=== PATIENT | female | born 1985 | race Caucasian/White ===

== ENCOUNTER 2017-04-05 16:47 | Inpatient (IN) | payer OTHER ==
--- NOTE | 2017-04-05 17:51 | CT ---
CT OF THE ORBITS 04/05/17 COMPARISON: None. HISTORY: Orbital trauma on the left. TECHNIQUE: Serial axial CT imaging obtained at 2.5 mm intervals through the orbits without contrast. Coronal and sagittal reformatted imaging obtained. FINDINGS: The frontal sinuses, maxillary sinuses, sphenoid sinuses, and ethmoid air cells appear within normal limits. There is exophthalmos on the left. There is subcutaneous gas on the left anterior to the maxillary si nus and just inferior to the left orbit. There are foci of subcutaneous gas within the soft tissues j ust lateral to the left nasal bone and there is subcutaneous gas in the region of the left upper eyel id. In addition, there are foci of gas within the left orbit in the intraconal region superior to the left superior rectus muscle. the nasal bones, zygomatic arches, and pterygoid plates appear intact. No radiopaque foreign body. The orbital floor and medial orbital wall appears intact bilaterally. The ocular lens appears to be in an appropriate position bilaterally and the globes demonstrate symme tric size and shape with no evidence for a ocular rupture. There is diffuse scleral thickening on the left with stranding of the soft tissues immediately adjacent to the left globe. No measurable retrobulbar hematoma. The visualized intracranial contents are grossly unremarkable. IMPRESSION: Evidence of penetrating trauma involving the left orbit and adjacent soft tissues with mild stranding of the soft tissues just posterior to the left globe including the intraconal fat. There is no focal retrobulbar hematoma appreciated and no evidence for fracture. Significant exophthalmos noted with n o evidence for foreign body or ruptured globe. Results discussed with Dr. Carrillo at 5:30 p.m., 04/05/17. Code CR POS: LIEN
[2017-04-05] MEDS ORDERED: Erythromycin Base 0.5% Ophth Oint 3.5 gm Tube ONE (19:40)
[2017-04-05] MEDS ORDERED: Ziprasidone 20 MG VIAL ONE (19:59)
[2017-04-05] MEDS ORDERED: Haloperidol Lactate 5 MG/ML VIAL ONE (20:05)
[2017-04-05] MEDS ORDERED: Lorazepam 2 MG/ML VIAL ONE (20:05)
[2017-04-05 21:09] LABS: #Lymphocytes 2.4 thou/uL (1.20-3.40); #Monocytes 1.3 thou/uL (0.11-0.59); #Neutrophils 14.6 thou/uL (1.40-6.50); %Basophils 0.2 % (0.0-1.0); %Eosinophils 0.1 % (0.0-10.0); %Lymphocytes 13.1 % (21.0-51.0); %Monocytes 7.1 % (0.0-10.0); %Neutrophils 79.5 % (42.0-75.0); Hemoglobin 13.7 g/dL (12.0-16.0); Mean Corpuscular HGB CONC 33.3 g/dL (32.0-36.0); Mean Corpuscular Hemoglobin 31.3 pg (27.0-31.0); Mean Platelet Volume 6.6 fL (7.4-10.4); Platelet Count 327 thou/uL (130-400); RBC Distribution Width 12.4 % (11.5-14.5); Red Blood Cell (RBC) Count 4.37 mill/uL (4.20-5.40); White Blood Cell (WBC) Count 18.3 thou/uL (4.8-10.8)
[2017-04-05 21:29] LABS: Bilirubin Negative (Negative); Blood, Urine Trace (Negative); Clarity CLOUDY (Clear); Glucose, Urine (Dipstick) Negative (Negative); Leukocyte Large (Negative); Nitrite Positive (Negative); Protein, Urine (Dipstick) 30 mg/dL (Neg-Trace); Specific Gravity, Urine 1.022 (1.002-1.036); pH, Urine 6.5 (5.0-9.0)
[2017-04-05 21:32] LABS: ALT (SGPT) 13 U/L (8-55); AST (SGOT) 30 U/L (5-34); Albumin 4.3 g/dL (3.5-5.0); Alkaline Phosphatase 83 U/L (40-150); Anion Gap 15 mmol/L (10-20); BUN (Urea Nitrogen) 6 mg/dL (7.0-18.7); Bilirubin, Total 0.5 mg/dL (0.2-1.2); Calc. Creatinine Clearance 0 mL/min (70-130); Calcium 9.5 mg/dL (7.8-10.44); Carbon Dioxide 25 mmol/L (22-29); Chloride 102 mmol/L (98-107); Estimated GFR-MDRD 90; Globulin 3.1 g/dL (2.4-3.5); Glucose 107 mg/dL (70-105); Protein, Total 7.4 g/dL (6.0-8.3); Sodium 139 mmol/L (136-145)
[2017-04-05 21:32] LABS: Bacteria/HPF 4+ HPF (None Seen); Pathc Cast-AUWi Flag 1.08 (0-2.49); RBC/HPF 0-3 HPF (0-3); Squamous Epithelial 0-3 HPF (0-3)
[2017-04-05 21:33] LABS: Hyaline Casts/LPF 0-3 HYALINE CAST LPF (0-3 Hyaline)
[2017-04-05 21:34] LABS: Acetaminophen Less than 6.0 mcg/mL (10.0-30.0); Alcohol Less than 10 mg/dL (Less than 10); Salicylate Less than 8.0 mg/dL (15.0-30.0)
[2017-04-05 21:38] LABS: Medtox Reader # READER 1
[2017-04-05 21:39] LABS: Amphetamine Not Detected (NotDetected); Barbiturates Screen Not Detected (NotDetected); Benzodiazepine Screen Detected (NotDetected); Cocaine Metabolite Screen Not Detected (NotDetected); Medtox Control Line Valid? VALID (VALID); Methadone Not Detected (NotDetected); Methamphetamine Not Detected (NotDetected); Opiate Screen Not Detected (NotDetected); Oxycodone Screen Not Detected (NotDetected); Phencyclidine (PCP) Not Detected (NotDetected); THC/Cannabinoid Screen Not Detected (NotDetected); Tricyclic Screen Not Detected (NotDetected)
[2017-04-05 21:40] LABS: Potassium 2.9 mmol/L (3.5-5.1)
[2017-04-05] MEDS ORDERED: Potassium Chloride 40 MEQ in Sodium Chloride 0.9% 500 ML IVPB SCH (22:15)
--- NOTE | 2017-04-05 22:21 | PDOC.FPRHP ---
- History of Present Illness Chief Complaint: Self harm with spoon to eye History of Present Illness: 31 year old female [facility] to self harm. She attempted to put a wooden spoon through her left eye whereby she sustained a penetrating injury. Dr. Coker, [employer], has seen patient in ED and repaired the injury. She now has a patch over her left eye. Patient has extensive psychiatric history. She has attempted self harm in the past. Much of the details of her PMH are unknown at this time as patient is lightly sedated on medications and unwilling to answer questions. She is currently in penitentiary and is known to be violent. [facility] was consulted and asked that labs be performed prior to accepting patient. Labs revealed a urinary tract infection, elevated WBC, and hypokalemia. Thus, [facility] would not accept the patient until medically cleared. Patient being admitted for medical management of hypokalemia and UTI. ED Course: Patient given ketamine 100 mg IVP, Tylenol 650 mg, Geodon 40 mg, Haldol 5 mg IM , Ativan 2 mg IM, NS 1L, Ceftriaxone 1 g IVPB, 40 meq of K over 40 hours IVPB, and erythromcyin opthalmic solution to left eye. - Allergies/Adverse Reactions Allergies Allergy/AdvReac Type Severity Reaction Status Date / Time Iodine and Iodide Containing Allergy Severe Short of Verified 09/15/16 22:24 Produc Breath - Home Medications Medication Instructions Recorded Confirmed Type OXcarbazepine [Trileptal] 600 mg PO HS 09/15/16 09/15/16 History Ziprasidone [Geodon] 40 mg PO HS 09/15/16 09/15/16 History Haloperidol [Haldol] 1 mg PO BID tab 09/16/16 Rx Nicotine [Nicoderm CQ] 21 mg TD Q24HR patch 09/16/16 Rx Nitrofurantoin Macrocrystal 100 mg PO BID #6 capsule 09/16/16 Rx [Nitrofurantoin] OXcarbazepine [Trileptal] 300 mg PO BID tab 09/16/16 Rx Vitamin 1 tab PO DAILY tab 09/16/16 Rx Comments: Unable to confirm medications at this time. - History PMHx: Known psychiatric history, unable to obtain details at this time PSHx: Unknown FHx: Unknown Social: Known methamphetamine abuse history - Review of Systems ROS unobtainable: due to mental status - Vital signs BP: [122/81] HR: [78] RR: [14] Tmax: [98.7] Pox: [98]% on [RA] Wt: [74.4 kg] - Physical Exam Additional comment: Unable to perform PE due to violent nature of patient and concerns for personal safety. FMR H&P: Results - Labs Result Diagrams: 04/05/17 20:44 04/05/17 20:44 Lab results: WBC 18.3 thou/uL (4.8-10.8) H 04/05/17 20:44 Hgb 13.7 g/dL (12.0-16.0) 04/05/17 20:44 Hct 41.1 % (36.0-47.0) 04/05/17 20:44 MCV 94.0 fl (81.0-99.0) 04/05/17 20:44 Plt Count 327 thou/uL (130-400) 04/05/17 20:44 Neutrophils % 79.5 % (42.0-75.0) H 04/05/17 20:44 Sodium 139 mmol/L (136-145) 04/05/17 20:44 Potassium 2.9 mmol/L (3.5-5.1) L* 04/05/17 20:44 Chloride 102 mmol/L (98-107) 04/05/17 20:44 Carbon Dioxide 25 mmol/L (22-29) 04/05/17 20:44 BUN 6 mg/dL (7.0-18.7) L 04/05/17 20:44 Creatinine 0.75 mg/dL (0.6-1.1) 04/05/17 20:44 Glucose 107 mg/dL (70-105) H 04/05/17 20:44 Calcium 9.5 mg/dL (7.8-10.44) 04/05/17 20:44 Total Bilirubin 0.5 mg/dL (0.2-1.2) 04/05/17 20:44 AST 30 U/L (5-34) 04/05/17 20:44 ALT 13 U/L (8-55) 04/05/17 20:44 Alkaline Phosphatase 83 U/L (40-150) 04/05/17 20:44 Serum Total Protein 7.4 g/dL (6.0-8.3) 04/05/17 20:44 Albumin 4.3 g/dL (3.5-5.0) 04/05/17 20:44 Urine Ketones 40 mg/dL (Negative) H 04/05/17 21:10 Urine Blood Trace (Negative) H 04/05/17 21:10 Urine Nitrite Positive (Negative) H 04/05/17 21:10 Ur Leukocyte Esterase Large (Negative) H 04/05/17 21:10 Urine RBC 0-3 HPF (0-3) 04/05/17 21:10 Urine WBC Greater Than 50-TNTC HPF (0-3) H 04/05/17 21:10 Ur Squamous Epith Cells 0-3 HPF (0-3) 04/05/17 21:10 Urine Bacteria 4+ HPF (None Seen) H 04/05/17 21:10 Additional comment: UDS: positive for benzo's Acetaminophen < 6.0 Salicylates < 6.0 FMR H&P: A/P - Problem List (1) Intentional self-harm by blunt object Current Visit: Yes Status: Acute Code(s): X79.XXXA - INTENTIONAL SELF-HARM BY BLUNT OBJECT, INITIAL ENCOUNTER Qualifiers: Encounter type: initial encounter Qualified Code(s): X79.XXXA - Intentional self-harm by blunt object, initial encounter Assessment and Plan: 1. Sustained left eye injury 2/2 penetration by wooden spoon 2. s/p repair by Dr. Coker, [employer] 3. Erythromycin ointment to left eye TID 4. Consult [facility] once medically stable (2) Hypokalemia Current Visit: Yes Status: Acute Code(s): E87.6 - HYPOKALEMIA Assessment and Plan: 1. Potassium 2.9 2. Given 40 meq IV in ED 3. Repeat BMP in AM 4. Replace as appropriate 5. Pending EKG (3) UTI (urinary tract infection) Current Visit: Yes Status: Acute Qualifiers: Urinary tract infection type: acute cystitis Assessment and Plan: 1. UA showed positive nitrates, large LE's, 4+ bacteria, WBC >50 2. Given 1 g rocephin in ED 3. Continue IV rocephin for treatment of UTI until mental status improved 4. Afebrile (4) Mental and behavioral problem Current Visit: Yes Status: Acute Code(s): F48.9 - NONPSYCHOTIC MENTAL DISORDER, UNSPECIFIED; F69 - UNSPECIFIED DISORDER OF ADULT PERSONALITY AND BEHAVIOR Assessment and Plan: 1. Known psych history; not cooperative with answering questions and lightly sedated on medications 2. When ED physician attempted to ask questions, patient screamed profanity rather than answering the questions 3. Will continue ativan and haldol for agitation 4. Four point, hard restraints at all times - Plan Disposition/LOS: Admit to telemetry with expected LOS 2 days. Pending MHMR consult once medically cleared. Expected D/C to inpatient psych. Daija Quinn, DO FMR H&P: Upper Level - Plan I, Delbert Zayas MD, have personally evaluated this patient and agree with findings/plan as outlined by product management internship resident. Pertinent changes/additions are listed here. 1) Intentional self-harm w/ blunt penetrating trauma to L eye: tear to the mucosal layer repaired in ER with multiple resorbable sutures by ophtho; continue with tid erythromycin ointment application; Dr. Rubio to see tomorrow AM. Pending medical clearance for MHMR re-evaluation. 2) Moderate hypokalemia: pt seems asymptomatic but unable to obtain history; EKG pending. IV piggyback running; recheck with AM labs. 3) Acute cystitis: again, unable to thoroughly evaluate for symptoms but UA consistent. Will treat with IV Rocephin for now and can transition to orals when safe to take PO. 4) Acute agitation and behavioral disturbance: underlying psych/personality d/o likely - requesting records from [facility]; prn parenteral haldol and ativan for now; restraints and safety precautions in place. Expect eventual discharge to inpatient psychiatric facility. Attending Addendum - Attending Addendum I personally evaluated the patient and discussed the management with Dr. Robert and Dr. Zayas I agree with the History, Examination, Assessment and Plan documented above with any addition or exceptions noted below. 31 yo female s/p recent RLTCSx4 with BTL presents to ER for acute psychosis with self-harm. Patient sedated in ER. Very combative upon arrive after attempting to remove her eye with a spoon. Patient currently an inmate in [facility]. History of multiple psychotic episodes. Last admission 09/2016. Patient with history of bipolar I disorder and polysubstance abuse. Appears to have UTI and electrolyte abnormalities. Will treat with IV antibx as above as well as correct and monitor lab abnormalities. Awaiting medical stabilization in order to transfer to [facility]/inpatient psych. Oj
[2017-04-06] MEDS ORDERED: Ondansetron HCl/PF 4 MG/2 ML Vial IVP PRN ×2 (01:23→01:28)
[2017-04-06] MEDS ORDERED: Ondansetron ODT 4 MG TAB SL PRN (01:23)
[2017-04-06] MEDS ORDERED: Acetaminophen 325 MG TAB PO PRN (01:23)
[2017-04-06] MEDS ORDERED: Lorazepam 2 MG/ML VIAL SLOW IVP PRN (01:28)
[2017-04-06] MEDS ORDERED: Ondansetron ODT 4 MG TAB PO PRN (01:28)
[2017-04-06] MEDS ORDERED: Acetaminophen 650 MG Suppository PR PRN (01:28)
[2017-04-06] MEDS ORDERED: Haloperidol Lactate 5 MG/ML VIAL IM PRN (01:28)
[2017-04-06] MEDS ORDERED: Sodium Chloride 0.9% 1,000 ML IV SCH (01:30)
[2017-04-06 02:01] VITALS: BMI 27.1
[2017-04-06] MEDS: Dextrose 5 %-0.45 % NaCl 1,000 ML IV SCH ×3 (03:07→16:21)
[2017-04-06] MEDS: Nicotine 14 MG PATCH TD SCH (03:18)
[2017-04-06 05:31] LABS: #Basophils 0.1 thou/uL (0.0-0.2); #Lymphocytes 2.1 thou/uL (1.20-3.40); #Monocytes 1.2 thou/uL (0.11-0.59); #Neutrophils 8.4 thou/uL (1.40-6.50); %Basophils 0.4 % (0.0-1.0); %Eosinophils 0.3 % (0.0-10.0); %Lymphocytes 17.6 % (21.0-51.0); %Monocytes 10.2 % (0.0-10.0); %Neutrophils 71.4 % (42.0-75.0); Hemoglobin 12.6 g/dL (12.0-16.0); Mean Corpuscular HGB CONC 32.6 g/dL (32.0-36.0); Mean Corpuscular Hemoglobin 30.8 pg (27.0-31.0); Mean Corpuscular Volume 94.5 fl (81.0-99.0); Mean Platelet Volume 6.9 fL (7.4-10.4); Platelet Count 301 thou/uL (130-400); RBC Distribution Width 12.4 % (11.5-14.5); Red Blood Cell (RBC) Count 4.09 mill/uL (4.20-5.40); White Blood Cell (WBC) Count 11.7 thou/uL (4.8-10.8)
[2017-04-06 05:39] LABS: Anion Gap 8 mmol/L (10-20); BUN (Urea Nitrogen) 5 mg/dL (7.0-18.7); Calc. Creatinine Clearance 142 mL/min (70-130); Calcium 8.5 mg/dL (7.8-10.44); Carbon Dioxide 25 mmol/L (22-29); Chloride 109 mmol/L (98-107); Estimated GFR-MDRD Greater than 90; Glucose 111 mg/dL (70-105); Potassium 3.3 mmol/L (3.5-5.1); Sodium 139 mmol/L (136-145)
[2017-04-06] MEDS ORDERED: Potassium Chloride 40 MEQ in Premix Bag 1 BAG IVPB SCH (07:30)
[2017-04-06] MEDS ORDERED: Potassium Chloride 40 MEQ, Admixture Fee 1 EACH in Sodium Chloride 0.9% 250 ML 250 ML IVPB SCH (07:45)
[2017-04-06] MEDS ORDERED: FLU VACC QS2017-18 36 mo. & older 0.5 ML SYRINGE IM ONE (09:00)
--- NOTE | 2017-04-06 09:24 | PDOC.FM ---
- Subjective Subjective: Pt sedated this am. No acute events overnight. - Objective MAR Reviewed: Yes Vital Signs & Weight: Vital Signs (12 hours) Temp Pulse Resp BP Pulse Ox 04/06/17 03:42 99.0 F 70 17 124/88 96 04/06/17 01:10 98.5 F 72 16 138/78 98 Weight Weight 76.204 kg I&O: 04/05/17 04/06/17 04/07/17 06:59 06:59 06:59 Intake Total 336 Balance 336 Result Diagrams: 04/06/17 04:47 04/06/17 04:47 <Mita Noe - Last Filed: 04/06/17 09:21> - Objective Vital Signs & Weight: Vital Signs (12 hours) Temp Pulse Resp BP Pulse Ox 04/06/17 12:19 102 H 20 116/86 99 04/06/17 07:00 98.6 F 82 22 H 121/91 H 98 Weight Weight 76.204 kg I&O: 04/05/17 04/06/17 04/07/17 06:59 06:59 06:59 Intake Total 336 Balance 336 Result Diagrams: 04/06/17 04:47 04/06/17 11:22 <Macey Rodriguez - Last Filed: 04/06/17 15:49> Phys Exam - Physical Examination Constitutional: NAD sedated nonlabored breathing Cardiovascular: RRR normal sinus rhythm Neurological: non-focal sedated <Mita Noe - Last Filed: 04/06/17 09:21> Dx/Plan (1) Hypokalemia Code(s): E87.6 - HYPOKALEMIA Status: Acute (2) Intentional self-harm by blunt object Code(s): X79.XXXA - INTENTIONAL SELF-HARM BY BLUNT OBJECT, INITIAL ENCOUNTER Status: Acute QualifierTitle: Encounter type: initial encounter Qualified Code(s): X79.XXXA - Intentional self-harm by blunt object, initial encounter (3) Mental and behavioral problem Code(s): F48.9 - NONPSYCHOTIC MENTAL DISORDER, UNSPECIFIED; F69 - UNSPECIFIED DISORDER OF ADULT PERSONALITY AND BEHAVIOR Status: Acute (4) UTI (urinary tract infection) Status: Acute QualifierTitle: Urinary tract infection type: acute cystitis - Plan Plan: 31 yo f with intentional harm of injury to eye admitted for intentional harm. 1) Intentional self-harm w/ blunt penetrating trauma to L eye; seen by Dr. Coker in the ER. Continue with tid erythromycin ointment application and Dr. Coker's recs; Pending medical clearance for [facility] re-evaluation. 2) Moderate hypokalemia: Resolved with NS + KCl. 3) Acute cystitis: will transition to PO antibiotics once patient is able to tolerate PO. She is currently sedated. Continue Rocephin at this time. 4) Acute agitation and behavioral disturbance: underlying psych/personality d/o likely - requesting records from [facility]; prn parenteral haldol and ativan for now; restraints and safety precautions in place. Expect eventual discharge to inpatient psychiatric facility. <Mita Noe - Last Filed: 04/06/17 09:21> Attending Addendum - Attending Addendum Date/Time: 04/06/17 4460 I personally evaluated the patient and discussed the management with Dr. Noe. I agree with the History, Examination, Assessment and Plan documented above with any addition or exceptions noted below. The patient is sleepy but arouses to answer questions. Complains of eye pain. Replacing potassium and will recheck potassium. Continue antibiotics for UTI. Try to obtain patient's psych history. Will coordinate with retirement once stable to get pt psychiatric care. <Macey Rodriguez - Last Filed: 04/06/17 15:49>
[2017-04-06] MEDS: Erythromycin Base 0.5% Oint 1 GM TUBE L EYE SCH ×3 (11:48→21:07)
[2017-04-06 12:05] LABS: Potassium 3.7 mmol/L (3.5-5.1)
[2017-04-06] MEDS: Acetaminophen 325 MG TAB PO PRN ×2 (17:13→21:06)
[2017-04-06] MEDS ORDERED: cefTRIAXone\\ROCEPHIN 1 GM, Syringe 0.4 ML in Sterile Water 9.6 ML SLOW IVP SCH (21:30)
[2017-04-06] MEDS ORDERED: cefTRIAXone\\ROCEPHIN 1 GM in Sodium Chloride 0.9% 100 ML IVPB SCH (21:30)
[2017-04-07] MEDS: Dextrose 5 %-0.45 % NaCl 1,000 ML IV SCH ×2 (02:02→09:51)
[2017-04-07] MEDS: Nicotine 14 MG PATCH TD SCH (02:06)
[2017-04-07] MEDS: Acetaminophen 325 MG TAB PO PRN ×2 (04:55→11:00)
--- NOTE | 2017-04-07 06:58 | PDOC.FM ---
- Subjective Subjective: No acute events overnight. No complaints this am. - Objective MAR Reviewed: Yes Vital Signs & Weight: Vital Signs (12 hours) Temp Pulse Resp BP Pulse Ox 04/07/17 04:00 98.6 F 59 L 16 144/105 H 97 04/07/17 00:00 98.5 F 61 16 150/102 H 96 04/06/17 20:35 98.7 F 78 16 100 04/06/17 20:00 98.7 F 78 16 140/88 100 Weight Weight 76.204 kg I&O: 04/05/17 04/06/17 04/07/17 06:59 06:59 06:59 Intake Total 336 Output Total 2700 Balance 336 -2700 Result Diagrams: 04/06/17 04:47 04/06/17 11:22 <Mita Noe - Last Filed: 04/07/17 11:39> - Objective Vital Signs & Weight: Vital Signs (12 hours) Temp Pulse Resp BP BP Pulse Ox 04/07/17 15:29 192/119 H 04/07/17 12:38 168/115 H 04/07/17 10:44 99.3 F 72 16 168/115 H 98 04/07/17 08:00 98.6 F 63 16 100 04/07/17 07:50 98.6 F 63 16 171/101 H 100 Weight Weight 76.204 kg I&O: 04/06/17 04/07/17 04/08/17 06:59 06:59 06:59 Intake Total 336 960 Output Total 2700 Balance 336 -2700 960 Result Diagrams: 04/06/17 04:47 04/06/17 11:22 <Macey Rodriguez - Last Filed: 04/07/17 18:35> Phys Exam - Physical Examination Constitutional: NAD left eye swollen shut; ecchymosis present Respiratory: no wheezing no increased work of breathing Cardiovascular: RRR Neurological: non-focal Psychiatric: A&O x 3 Deviation from normal: abnormal affect <Mita Noe - Last Filed: 04/07/17 11:39> Dx/Plan (1) Hypokalemia Code(s): E87.6 - HYPOKALEMIA Status: Acute (2) Intentional self-harm by blunt object Code(s): X79.XXXA - INTENTIONAL SELF-HARM BY BLUNT OBJECT, INITIAL ENCOUNTER Status: Acute QualifierTitle: Encounter type: initial encounter Qualified Code(s): X79.XXXA - Intentional self-harm by blunt object, initial encounter (3) Mental and behavioral problem Code(s): F48.9 - NONPSYCHOTIC MENTAL DISORDER, UNSPECIFIED; F69 - UNSPECIFIED DISORDER OF ADULT PERSONALITY AND BEHAVIOR Status: Acute (4) UTI (urinary tract infection) Status: Acute QualifierTitle: Urinary tract infection type: acute cystitis - Plan Plan: 31 yo f with intentional harm of injury to eye admitted for intentional harm. 1) Intentional self-harm w/ blunt penetrating trauma to L eye; seen by Dr. Coker in the ER. Continue with qid erythromycin ointment application and Dr. Coker's recs; Cm called Sgt. Garrison at the shelter to ask if they feel that she can be taken care of there safely. If she cannot be safely taken care of, then she will have to wait for a bed at [facility] here in the hospital. 2.) Acute cystitis: will transition to PO macrobi today. 3) Acute agitation and behavioral disturbance: underlying psych/personality d/o likely - requesting records [facility]; prn parenteral haldol and ativan for now; restraints and safety precautions in place. Expect eventual discharge to [facility]. dispo: medically cleared, pending bed at [facility], and pending call from Sgt Garrison regarding safety/care at the shelter for this patient. <Mita Noe - Last Filed: 04/07/17 11:39> Attending Addendum - Attending Addendum Date/Time: 04/07/17 [id number] I personally evaluated the patient and discussed the management with Dr. Noe. I agree with the History, Examination, Assessment and Plan documented above with any addition or exceptions noted below. Patient is medically stable. Restarting psych meds. Patient needs an [facility] bed per [facility]. Case mgmt is helping coordinate discharge. <Macey Rodriguez - Last Filed: 04/07/17 18:35>
[2017-04-07] MEDS: Erythromycin Base 0.5% Oint 1 GM TUBE L EYE SCH (09:45)
[2017-04-07 12:29] VITALS: TEMP 99.3
[2017-04-07] MEDS ORDERED: cloNIDine 0.1 MG TAB PO SCH ×2 (12:45→15:00)
[2017-04-07 15:34] VITALS: BP 192/119
[2017-04-07] MEDS ORDERED: Erythromycin Base 0.5% Oint 1 GM TUBE L EYE SCH (17:00)
[2017-04-07] MEDS ORDERED: Benztropine 1 MG TAB PO SCH (21:00)
[2017-04-07] MEDS ORDERED: traZODone HCl 50 MG TAB PO SCH (21:00)
[2017-04-07] MEDS ORDERED: Docusate 100 MG CAP PO SCH (21:00)
[2017-04-07] MEDS ORDERED: busPIRone HCl 5 MG TAB PO SCH (21:00)
[2017-04-07] MEDS ORDERED: OXcarbazepine 600 MG TAB PO SCH (21:00)
[2017-04-07] MEDS ORDERED: levETIRAcetam 500 MG TAB PO SCH (21:00)
[2017-04-08] MEDS ORDERED: Ferrous Sulfate 325 MG TAB PO SCH (08:00)
[2017-04-08] MEDS ORDERED: Prenatal Vitamin 1 TAB PO SCH (09:00)
--- NOTE | 2017-04-08 11:53 | DIS-2 ---
DATE OF ADMISSION: 04/05/2017 DATE OF DISCHARGE: 04/07/2017 ADMITTING RESIDENT: Dr. Daija Quinn. ADMITTING ATTENDING: Dr. Saskia Parra. DISCHARGE RESIDENT: Mita Noe MD DISCHARGE ATTENDING: Macey Rodriguez M.D. CONSULTATIONS: None. PROCEDURES: CT showed evidence of penetrating trauma involving the left orbit and adjacent soft tissues with mild stranding of the soft tissues just posterior to the left globe including the intracoronal fact. There is no focal retrobulbar hematoma appreciated no evidence for fracture. Significant exophthalmus noted with no evidence for foreign body or ruptured globe. EKG showed normal sinus rhythm, nonspecific T-wave abnormality. PRIMARY DIAGNOSES: 1. Intentional self-harm by blunt object. 2. Hypokalemia. 3. Urinary tract infection. 4. Mental and behavioral disturbance. DISCHARGE MEDICATIONS: 1. Erythromycin topical q.i.d. 2. Trileptal 600 mg p.o. at bedtime. 3. vitamins 1 tab p.o. daily. 4. Benztropine 1 mg oral at bedtime. 5. Ziprasidone 18 mg oral at bedtime. 6. Trazodone 1.5 mg tablet oral at bedtime. 7. Clonidine 0.1 mg oral t.i.d. 8. Buspirone 50 mg oral twice daily. 9. Keppra 500 mg oral twice daily. 10. Docusate 100 mg oral twice daily. 11. Ferrous sulfate 325 mg oral daily. HISTORY OF PRESENT ILLNESS AND HOSPITAL COURSE: Le Lamas is a 31-year-old female, who presented from [facility] secondary to intentional self-harm with a wooden spoon that she penetrated her left eye with. She was seen in the ER by Dr. Rubio, an polish compounder, who repaired the injury. He also recommended erythromycin q.i.d. topical. She has extensive psychiatric history of attempted self-harm in the past. She was sedated in the ER. She is known in snf to be very violent. In the ER, she was given ketamine 100 mg IVP, Tylenol 650 mg, Geodon 40 mg, Haldol 5 mg IM, Ativan 2 mg IM normal saline of 1 liter, Ceftriaxone 1 gram IVP, 40 mEq potassium, and erythromycin ophthalmic solution to the left eye. Her vitals upon initial admission were within normal limits and initial exam was not performed due to viral nature of the patient and concern for personal safety. Initial labs showed a leukocytosis at 18.3 and hypokalemia of 2.9. UDS was positive for benzos. Urine showed large leukocyte esterase and 4+ bacteria. She was admitted for intentional self-harm by a blunt object, hypokalemia, UTI, and uncontrolled mental behavioral problems. 1. Intentional self-harm in a blunt object. She sustained a left eye injury due to a penetration of a wooden spoon. She was seen, as stated above, by Dr. Rubio in the ER; he saw her daily and recommended erythromycin q.i.d. 2. Hypokalemia. Her initial potassium was 2.9. She was given 40 mEq IV in the ER. Her potassium normalized. EKG was normal. 3. Urinary tract infection. UA showed positive nitrites, large leukocyte esterase, 4+ bacteria. White blood cell count over 50. She was given a gram Rocephin in the ER. IV Rocephin was continued during her hospitalization. 4. Mental behavioral problem. She has a known psychiatric history, although was initially difficult to obtain on initial H&P because of she was sedated and she was not cooperative with answering questions. Her complete medication reconciliation was done and she was restarted on her home meds. She was cleared medically by the primary team and [facility] was consulted. The inpatient medicine team spoke with Sergeant magana at the snf and the patient through the court system had her charges dropped and she was discharged from [facility] as for direct forced admission into due to the severity of her mental illness and concern for personal as well as the safety of those helping to take care of her. DISPOSITION: Unstable concern for self-harm and harm to others, mental disorder or mental illness, uncontrolled. DISCHARGE INSTRUCTIONS: 1. Location: [facility]. 2. Diet: Normal diet. 3. Activity: As tolerated. 4. Followup: Follow up with primary care within 1 week and with an polish compounder within 1 week for appropriate eye care. TRISTIAN
--- NOTE | 2017-04-09 19:35 | EKG ---
Test Reason : Blood Pressure : / mmHG Vent. Rate : 072 BPM Atrial Rate : 072 BPM P-R Int : 132 ms QRS Dur : 080 ms QT Int : 414 ms P-R-T Axes : 052 005 000 degrees QTc Int : 453 ms Normal sinus rhythm Nonspecific T wave abnormality Abnormal ECG Confirmed by ELLIE COLUNGA, LARY Ceolho ([id number]), news videotape editor CA BRICENO ([id number]) on 04/09/2017 7:35:13 PM Referred By: Confirmed By:LARY ARGUETA MD
== END 2017-04-07 15:58 | DRG 690 ==
LOC: ERS 16:47 → 2SE 22:00 → T4-A 04-07 10:34
PROVIDERS: ADMIT Student in an Organized Health Care Education/Training Program; ATTEND Student in an Organized Health Care Education/Training Program
DX: N30.00 Acute cystitis without hematuria (principal); S05.92XA Unspecified injury of left eye and orbit, initial encounter; F69 Unspecified disorder of adult personality and behavior; E87.6 Hypokalemia; X79.XXXA Intentional self-harm by blunt object, initial encounter; Y92.149 Unspecified place in prison as the place of occurrence of the external cause; Z91.5 Personal history of self-harm; F15.11 Other stimulant abuse, in remission; F31.9 Bipolar disorder, unspecified
CPT/HCPCS: 36415; 51701; 70480; 80048; 80053; 80306; 80307; 81003; 81015; 83735; 84443; 85025; 87077; 87086; 87186; 93005; 96361; 96365; 96366; 96372; 96375; A4216; A4353; J0696; J1630; J2060; J3480; J3486; J7050

== ENCOUNTER 2017-07-31 08:30 | Emergency (ER) | payer OTHER ==
[2017-07-31] MEDS ORDERED: Acetaminophen 325 MG TAB ONE (09:36)
[2017-07-31 10:12] LABS: Bilirubin Negative (Negative); Blood, Urine Small (Negative); Clarity TURBID (Clear); Glucose, Urine (Dipstick) Negative (Negative); Leukocyte Large (Negative); Nitrite Positive (Negative); Protein, Urine (Dipstick) 30 mg/dL (Neg-Trace); Specific Gravity, Urine 1.024 (1.002-1.036); pH, Urine 6.5 (5.0-9.0)
[2017-07-31 10:13] LABS: Bacteria/HPF 4+ HPF (None Seen)
[2017-07-31 10:15] LABS: Pathc Cast-AUWi Flag 2.61 (0-2.49)
[2017-07-31 10:26] LABS: Hyaline Casts/LPF 0-3 HYALINE CAST LPF (0-3 Hyaline); Other Casts/LPF None Seen LPF (0-3 Hyaline)
== END 2017-07-31 11:00 | disposition home or self-care (01) ==
LOC: ERS 08:30
DX: K02.9 Dental caries, unspecified (principal); R22.0 Localized swelling, mass and lump, head; R31.9 Hematuria, unspecified; I10 Essential (primary) hypertension; N39.0 Urinary tract infection, site not specified; Z71.6 Tobacco abuse counseling; F31.9 Bipolar disorder, unspecified; F17.210 Nicotine dependence, cigarettes, uncomplicated; Z79.899 Other long term (current) drug therapy
CPT/HCPCS: 36415; 81003; 81015; 84702; 87077; 87086; 87186; 99406

== ENCOUNTER 2017-08-01 09:30 | Emergency (ER) | payer OTHER | END 2017-08-01 10:10 | disposition home or self-care (01) | LOC: ERS 09:30 | DX: K04.7 Periapical abscess without sinus (principal); K03.81 Cracked tooth; Z71.6 Tobacco abuse counseling; I10 Essential (primary) hypertension; F31.9 Bipolar disorder, unspecified; F17.210 Nicotine dependence, cigarettes, uncomplicated; Z79.899 Other long term (current) drug therapy | CPT/HCPCS: 99406 ==

== ENCOUNTER 2017-11-02 00:13 | Emergency (ER) | payer OTHER ==
[2017-11-02 00:41] LABS: #Basophils 0.1 thou/uL (0.0-0.2); #Eosinphils 0.1 thou/uL (0.0-0.7); #Lymphocytes 2.9 thou/uL (1.20-3.40); #Neutrophils 4.8 thou/uL (1.40-6.50); %Basophils 0.6 % (0.0-1.0); %Eosinophils 0.7 % (0.0-10.0); %Lymphocytes 32.7 % (21.0-51.0); %Monocytes 11.6 % (0.0-10.0); %Neutrophils 54.4 % (42.0-75.0); Hemoglobin 13.3 g/dL (12.0-16.0); Mean Corpuscular HGB CONC 33.7 g/dL (32.0-36.0); Mean Corpuscular Hemoglobin 30.4 pg (27.0-31.0); Mean Corpuscular Volume 90.3 fL (78.0-98.0); Mean Platelet Volume 7.5 fL (7.4-10.4); Platelet Count 259 thou/uL (130-400); Red Blood Cell (RBC) Count 4.38 mill/uL (4.20-5.40); White Blood Cell (WBC) Count 8.8 thou/uL (4.8-10.8)
[2017-11-02 01:11] LABS: Acetaminophen Less than 6.0 mcg/mL (10.0-30.0); Alcohol Less than 10 mg/dL (Less than 10); Salicylate Less than 8.0 mg/dL (15.0-30.0)
[2017-11-02 01:49] LABS: Bilirubin Negative (Negative); Blood, Urine Trace (Negative); Clarity CLOUDY (Clear); Glucose, Urine (Dipstick) Negative (Negative); Leukocyte Moderate (Negative); Nitrite Negative (Negative); Protein, Urine (Dipstick) Trace mg/dL (Neg-Trace); Specific Gravity, Urine 1.025 (1.002-1.036); Urobilinogen 0.2 mg/dL (0.2-1.0)
[2017-11-02 01:52] LABS: Bacteria/HPF Rare-Few HPF (None Seen); Hyaline Casts/LPF 4-6 HYALINE CAST LPF (0-3 Hyaline); Pathc Cast-AUWi Flag 1.16 (0-2.49); Squamous Epithelial 0-3 HPF (0-3)
[2017-11-02 01:54] LABS: BHCG - Serum Negative (NEGATIVE); Pregs Control Background? CLEAR/WHITE (CLR/WHITE); Pregs Control Bar Appear? YES (CONTROL BAR)
[2017-11-02 01:57] LABS: Medtox Reader # READER 4
[2017-11-02 01:58] LABS: Amphetamine Not Detected (NotDetected); Barbiturates Screen Not Detected (NotDetected); Benzodiazepine Screen Detected (NotDetected); Cocaine Metabolite Screen Not Detected (NotDetected); Medtox Control Line Valid? VALID (VALID); Methadone Not Detected (NotDetected); Methamphetamine Detected (NotDetected); Opiate Screen Not Detected (NotDetected); Oxycodone Screen Not Detected (NotDetected); Phencyclidine (PCP) Not Detected (NotDetected); THC/Cannabinoid Screen Not Detected (NotDetected); Tricyclic Screen Not Detected (NotDetected)
[2017-11-02 02:17] LABS: ALT (SGPT) 8 U/L (8-55); AST (SGOT) 19 U/L (5-34); Alkaline Phosphatase 84 U/L (40-150); Anion Gap 15 mmol/L (10-20); BUN (Urea Nitrogen) 19 mg/dL (7.0-18.7); Bilirubin, Total 0.4 mg/dL (0.2-1.2); CK (CPK) 188 U/L (29-168); Calc. Creatinine Clearance 0 mL/min (70-130); Carbon Dioxide 24 mmol/L (22-29); Chloride 102 mmol/L (98-107); Estimated GFR-MDRD 68; Globulin 3.2 g/dL (2.4-3.5); Glucose 110 mg/dL (70-105); Potassium 3.6 mmol/L (3.5-5.1); Protein, Total 7.2 g/dL (6.0-8.3); Sodium 137 mmol/L (136-145)
--- NOTE | 2017-11-05 11:33 | EKG ---
Test Reason : Blood Pressure : / mmHG Vent. Rate : 059 BPM Atrial Rate : 059 BPM P-R Int : 136 ms QRS Dur : 086 ms QT Int : 476 ms P-R-T Axes : 052 036 018 degrees QTc Int : 471 ms Sinus bradycardia Otherwise normal ECG Confirmed by DEVAN COLUNGA, OMAR ([id number]), news copy editor JESSEE JONES ([id number]) on 11/05/2017 11:33:04 AM Referred By: DEVAN Confirmed By:OMAR HARTMAN MD
== END 2017-11-02 02:13 | disposition home or self-care (01) ==
LOC: ERS 00:13
DX: F19.10 Other psychoactive substance abuse, uncomplicated (principal); N39.0 Urinary tract infection, site not specified; I10 Essential (primary) hypertension; F17.210 Nicotine dependence, cigarettes, uncomplicated
CPT/HCPCS: 36415; 80053; 80306; 80307; 81003; 81015; 82550; 84443; 84703; 85025; 93005

== ENCOUNTER 2017-11-06 01:34 | Emergency (ER) | payer OTHER | END 2017-11-06 01:45 | disposition home or self-care (01) | LOC: ERS 01:34 | DX: Z02.89 Encounter for other administrative examinations (principal) | CPT/HCPCS: 99282 ==

== ENCOUNTER 2018-01-03 17:40 | Observation (INO) | payer OTHER ==
[2018-01-03] MEDS ORDERED: KETAMINE 100 MG/ML (5ML VIAL) ONE (18:21)
[2018-01-03 19:52] LABS: #Basophils 0.1 thou/uL (0.0-0.2); #Eosinphils 0.1 thou/uL (0.0-0.7); #Monocytes 0.7 thou/uL (0.11-0.59); #Neutrophils 4.6 thou/uL (1.40-6.50); %Basophils 0.7 % (0.0-1.0); %Eosinophils 0.6 % (0.0-10.0); %Lymphocytes 35.7 % (21.0-51.0); %Monocytes 8.1 % (0.0-10.0); %Neutrophils 54.9 % (42.0-75.0); Hemoglobin 11.1 g/dL (12.0-16.0); Mean Corpuscular HGB CONC 33.1 g/dL (32.0-36.0); Mean Corpuscular Volume 90.7 fL (78.0-98.0); Mean Platelet Volume 7.6 fL (7.4-10.4); Platelet Count 278 thou/uL (130-400); RBC Distribution Width 13.5 % (11.5-14.5); Red Blood Cell (RBC) Count 3.69 mill/uL (4.20-5.40); White Blood Cell (WBC) Count 8.4 thou/uL (4.8-10.8)
[2018-01-03 20:16] LABS: ALT (SGPT) 20 U/L (8-55); AST (SGOT) 48 U/L (5-34); Albumin 3.5 g/dL (3.5-5.0); Alcohol Less than 10 mg/dL (Less than 10); Alkaline Phosphatase 62 U/L (40-150); Anion Gap 13 mmol/L (10-20); BUN (Urea Nitrogen) 10 mg/dL (7.0-18.7); Bilirubin, Total 0.3 mg/dL (0.2-1.2); CK (CPK) 1068 U/L (29-168); Calc. Creatinine Clearance 0 mL/min (70-130); Calcium 8.5 mg/dL (7.8-10.44); Carbon Dioxide 24 mmol/L (22-29); Chloride 105 mmol/L (98-107); Estimated GFR-MDRD 68; Globulin 2.6 g/dL (2.4-3.5); Glucose 120 mg/dL (70-105); Protein, Total 6.1 g/dL (6.0-8.3); Sodium 139 mmol/L (136-145)
[2018-01-03 20:17] LABS: Acetaminophen Less than 6.0 mcg/mL (10.0-30.0); Alcohol Less than 10 mg/dL (Less than 10); Salicylate Less than 8.0 mg/dL (15.0-30.0)
[2018-01-03 20:20] LABS: Potassium 2.9 mmol/L (3.5-5.1)
[2018-01-03 21:23] LABS: Pregnancy Test - Urine (BHCG) Negative (Negative); Pregu Control Background? CLEAR/WHITE (CLR/WHITE); Pregu Control Bar Appear? YES (CONTROL BAR); Specific Gravity 1.017 (1.002-1.036)
[2018-01-03 21:31] LABS: Amphetamine Detected (NotDetected); Barbiturates Screen Not Detected (NotDetected); Benzodiazepine Screen Detected (NotDetected); Cocaine Metabolite Screen Detected (NotDetected); Medtox Control Line Valid? VALID (VALID); Medtox Reader # READER 1; Methadone Not Detected (NotDetected); Methamphetamine Detected (NotDetected); Opiate Screen Not Detected (NotDetected); Oxycodone Screen Not Detected (NotDetected); Phencyclidine (PCP) Not Detected (NotDetected); THC/Cannabinoid Screen Not Detected (NotDetected); Tricyclic Screen Not Detected (NotDetected)
[2018-01-04] MEDS ORDERED: Potassium Chloride 20 MEQ TAB ONE ×2 (03:32→06:38)
[2018-01-04] MEDS ORDERED: Haloperidol Lactate 5 MG/ML VIAL ONE (10:00)
[2018-01-04] MEDS ORDERED: Lorazepam 2 MG/ML VIAL ONE (10:08)
[2018-01-04 12:30] LABS: ALT (SGPT) 26 U/L (8-55); AST (SGOT) 65 U/L (5-34); Albumin 3.4 g/dL (3.5-5.0); Alkaline Phosphatase 58 U/L (40-150); Anion Gap 12 mmol/L (10-20); BUN (Urea Nitrogen) 8 mg/dL (7.0-18.7); Bilirubin, Total 0.5 mg/dL (0.2-1.2); CK (CPK) 1344 U/L (29-168); Calc. Creatinine Clearance 0 mL/min (70-130); Carbon Dioxide 24 mmol/L (22-29); Chloride 109 mmol/L (98-107); Estimated GFR-MDRD 86; Globulin 2.6 g/dL (2.4-3.5); Glucose 89 mg/dL (70-105); Potassium 3.6 mmol/L (3.5-5.1); Sodium 141 mmol/L (136-145)
[2018-01-04] MEDS ORDERED: Nicotine 7 MG PATCH TOP SCH (21:15)
--- NOTE | 2018-01-05 01:06 | PDOC.FPRHP ---
- History of Present Illness Chief Complaint: SI History of Present Illness: 32 yo F with PMHx polysubstance abuse presents after being brought in for SI/HI and plan to "lay down on the train tracks." She was reportedly found by police running through the street trying to be hit by a car. She was initially dispositioned for admission to a psychiatric facility but found to have elevated CK and hypokalemia. On interview, she states that she has no plan to kill herself and she does not know why she was brought in. She does not recall any events leading up to arriving at the ED. She denies any drug use. ED Course: IV NS x3L, K+ repletion, medications for sedation (ativan, ketamine, benadryl, haldol) due to combativeness - Allergies/Adverse Reactions Allergies Allergy/AdvReac Type Severity Reaction Status Date / Time Iodine and Iodide Containing Allergy Severe Short of Verified 01/05/18 02:20 Produc Breath - Home Medications Medication Instructions Recorded Confirmed Type Ziprasidone HCl [Geodon] 160 mg PO HS 04/06/17 04/06/17 History cloNIDine [Catapres] 0.1 mg PO DAILY 04/06/17 01/05/18 History traZODone HCl [Trazodone HCl] 300 tab PO HS 04/06/17 01/05/18 History Divalproex Sodium [Divalproex 500 mg PO BID 01/05/18 01/05/18 History Sodium ER] - History PMHx: Polysubstance abuse, mental and behavioral disturbance, self-harming behavior PSHx: Denies (documented h/o C/S x3 and cholecystectomy) FHx: Denies any history of OK, T2DM, psychiatric d/o Social: Denies tobacco, alcohol, drug use - Review of Systems General: denies: fever/chills, weight/appetite/sleep changes Eyes: reports: other (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 denies: eye pain , vision changes ENT: denies: nasal congestion, rhinorrhea Respiratory: denies: cough, congestion Cardiovascular: denies: chest pain, palpitation Gastrointestinal: denies: nausea, vomiting, diarrhea Genitourinary: denies: incontinence, dysuria Skin: denies: rashes, lesions Musculoskeletal: denies: pain, tenderness Neurological: denies: syncope, seizure Psychological: reports: other (denies SI/HI, hallucinations) - Vital signs BP: 146/88 HR: 83 RR: 18 Tmax: 98.5 Pox: 100 % on RA Wt: 71 kg - Physical Exam Constitutional: NAD, awake, alert and oriented, well developed HEENT: grossly normal hearing, MMM, other (unable to fully open either eye, reports blindness in R eye) Neck: supple, trachea midline Chest: no-tender to palpation Heart: RRR, normal S1/S2 Lungs: CTAB, no respiratory distress Abdomen: soft, non-tender, bowel sounds present Musculoskeletal: normal structure, normal tone Neurological: other (moving all extremities equally) Skin: other (tattoos) Psychiatric: other (psychomotor agitation, alert, appropriately answering questions, poor insight, flat affect, mood labile) FMR H&P: Results - Labs Result Diagrams: 01/03/18 19:43 01/05/18 05:33 Lab results: WBC 8.4 thou/uL (4.8-10.8) 01/03/18 19:43 Hgb 11.1 g/dL (12.0-16.0) L 01/03/18 19:43 Hct 33.5 % (36.0-47.0) L 01/03/18 19:43 MCV 90.7 fL (78.0-98.0) 01/03/18 19:43 Plt Count 278 thou/uL (130-400) 01/03/18 19:43 Neutrophils % 54.9 % (42.0-75.0) 01/03/18 19:43 Sodium 141 mmol/L (136-145) 01/04/18 11:41 Potassium 3.6 mmol/L (3.5-5.1) 01/04/18 11:41 Chloride 109 mmol/L (98-107) H 01/04/18 11:41 Carbon Dioxide 24 mmol/L (22-29) 01/04/18 11:41 BUN 8 mg/dL (7.0-18.7) 01/04/18 11:41 Creatinine 0.78 mg/dL (0.6-1.1) 01/04/18 11:41 Glucose 89 mg/dL (70-105) 01/04/18 11:41 Calcium 9.0 mg/dL (7.8-10.44) 01/04/18 11:41 Total Bilirubin 0.5 mg/dL (0.2-1.2) 01/04/18 11:41 AST 65 U/L (5-34) H 01/04/18 11:41 ALT 26 U/L (8-55) 01/04/18 11:41 Alkaline Phosphatase 58 U/L (40-150) 01/04/18 11:41 Creatine Kinase 1189 U/L (29-168) H 01/04/18 21:02 Serum Total Protein 6.0 g/dL (6.0-8.3) 01/04/18 11:41 Albumin 3.4 g/dL (3.5-5.0) L 01/04/18 11:41 FMR H&P: A/P - Problem List (1) Suicidal ideation Current Visit: Yes Status: Acute Code(s): R45.851 - SUICIDAL IDEATIONS (2) Hypokalemia Current Visit: Yes Status: Acute Code(s): E87.6 - HYPOKALEMIA (3) Rhabdomyolysis Current Visit: Yes Status: Acute Code(s): M62.82 - RHABDOMYOLYSIS (4) Mental and behavioral problem Current Visit: No Status: Acute Code(s): F48.9 - NONPSYCHOTIC MENTAL DISORDER, UNSPECIFIED; F69 - UNSPECIFIED DISORDER OF ADULT PERSONALITY AND BEHAVIOR (5) Polysubstance abuse Current Visit: No Status: Acute Code(s): F19.10 - OTHER PSYCHOACTIVE SUBSTANCE ABUSE, UNCOMPLICATED - Plan 32 yo F here with SI found to have rhabdomyolysis 1. Rhabdomyolisis - CK downtrending with IV fluids - Will continue and will trend CK 2. Suicidal ideation - Denies at this time - Per records was endorsing plan to lie on train tracks/jumping in front of cars - Will consult [facility] once medically stable 3. Hypokalemia - Resolved, will continue daily BMP 4. Polysubstance abuse - Positive for methamphetamines, cocaine, benzodiazepines, amphetamines on UDS - Patient completely denies 5. Mental disturbance - Multiple comorbid conditions listed in history, patient does not confirm any of them - Will continue reported regimen from [facility] PPX: Lovenox, no GI ppx indicated Diet: Regular Attending Addendum - Attending Addendum Date/Time: 01/05/18 1121 I personally evaluated the patient and discussed the management with Dr. Manriquez/ Rayshawn. I agree with the History, Examination, Assessment and Plan documented above with any addition or exceptions noted below.
[2018-01-05] MEDS ORDERED: Sodium Chloride 0.9% 1,000 ML IV SCH (02:00)
[2018-01-05] MEDS: Lactated Ringer's 1,000 ML IV SCH ×3 (03:26→17:25)
[2018-01-05 06:07] LABS: Anion Gap 11 mmol/L (10-20); BUN (Urea Nitrogen) 8 mg/dL (7.0-18.7); CK (CPK) 1008 U/L (29-168); Calc. Creatinine Clearance 129 mL/min (70-130); Calcium 8.6 mg/dL (7.8-10.44); Carbon Dioxide 24 mmol/L (22-29); Chloride 109 mmol/L (98-107); Estimated GFR-MDRD Greater than 90; Glucose 94 mg/dL (70-105); Potassium 3.9 mmol/L (3.5-5.1); Sodium 140 mmol/L (136-145)
[2018-01-05] MEDS: Nicotine 7 MG PATCH TD SCH (09:40)
[2018-01-05] MEDS: cloNIDine 0.1 MG TAB PO SCH (09:40)
[2018-01-05] MEDS ORDERED: Lorazepam 2 MG/ML VIAL IM PRN (10:16)
[2018-01-05] MEDS ORDERED: Haloperidol Lactate 5 MG/ML VIAL IM SCH (10:30)
[2018-01-05] MEDS: Lorazepam 2 MG/ML VIAL SLOW IVP PRN (10:54)
[2018-01-05] MEDS ORDERED: Lactated Ringer's 1,000 ML IV SCH (14:34)
[2018-01-05] MEDS: traZODone HCl 150 MG TAB PO SCH (20:37)
[2018-01-06] MEDS: Lactated Ringer's 1,000 ML IV SCH ×6 (00:12→22:36)
--- NOTE | 2018-01-06 08:45 | PDOC.FM ---
- Subjective Subjective: Patient found sleeping comfortably this morning. Yesterday, patient became agitated, however was able to calm herself without additional antipsychotics. Today she has no specific complaints. Denies all symptoms in ROS. No SI/HI - Objective MAR Reviewed: Yes Vital Signs & Weight: Vital Signs (12 hours) Temp Pulse Resp BP BP Pulse Ox 01/06/18 07:52 97.7 F 71 18 127/84 97 01/06/18 06:13 98.0 F 76 18 138/84 96 01/06/18 00:00 97.8 F 82 20 131/69 100 Weight Weight 70.9 kg I&O: 01/05/18 01/06/18 01/07/18 06:59 06:59 06:59 Intake Total 625 7005 Balance 625 7005 Result Diagrams: 01/03/18 19:43 01/05/18 05:33 <Ravindra Johnson - Last Filed: 01/06/18 08:43> - Objective Vital Signs & Weight: Vital Signs (12 hours) Temp Pulse Resp BP BP BP Pulse Ox 01/06/18 09:46 127/84 01/06/18 07:52 97.7 F 71 18 127/84 97 01/06/18 06:13 98.0 F 76 18 138/84 96 01/06/18 00:00 97.8 F 82 20 131/69 100 Weight Weight 70.9 kg I&O: 01/05/18 01/06/18 01/07/18 06:59 06:59 06:59 Intake Total 625 7005 Balance 625 7005 Result Diagrams: 01/03/18 19:43 01/05/18 05:33 <Scott Funes - Last Filed: 01/06/18 10:58> Phys Exam - Physical Examination Constitutional: NAD HEENT: sclera anicteric Neck: no JVD Respiratory: clear to auscultation bilateral Cardiovascular: RRR, no significant murmur Gastrointestinal: no distention Musculoskeletal: no edema Neurological: moves all 4 limbs Psychiatric: A&O x 3 Deviation from normal: Appears agitiated with fast rate of speech. Skin: no rash <Ravindra Johnson - Last Filed: 01/06/18 08:43> Dx/Plan (1) Rhabdomyolysis Code(s): M62.82 - RHABDOMYOLYSIS Status: Acute (2) Suicidal ideation Code(s): R45.851 - SUICIDAL IDEATIONS Status: Acute (3) Hypokalemia Code(s): E87.6 - HYPOKALEMIA Status: Resolved (4) Bipolar 1 disorder Code(s): F31.9 - BIPOLAR DISORDER, UNSPECIFIED Status: Acute (5) Mental and behavioral problem Code(s): F48.9 - NONPSYCHOTIC MENTAL DISORDER, UNSPECIFIED; F69 - UNSPECIFIED DISORDER OF ADULT PERSONALITY AND BEHAVIOR Status: Acute - Plan Plan: Rhabdomyolisis - Continue IVF, monitor CK. - Goal is to get CK below 300 so she can be cleared for mental health inpatient facility SI - not currently suicidal. Continue sitter. Plan to consult [facility] when CK improves for eval for inpatient facility Hypokalemia, resolved Polysubstance abuse - initial UDS positive for methamphetamines, cocaine, benzos Dispo: stable, should be medically cleared today. Plant to transfer to inpatient mental facility <Ravindra Johnson - Last Filed: 01/06/18 08:43> (1) Suicidal ideation Code(s): R45.851 - SUICIDAL IDEATIONS Status: Acute (2) Hypokalemia Code(s): E87.6 - HYPOKALEMIA Status: Resolved (3) Rhabdomyolysis Code(s): M62.82 - RHABDOMYOLYSIS Status: Acute (4) Mental and behavioral problem Code(s): F48.9 - NONPSYCHOTIC MENTAL DISORDER, UNSPECIFIED; F69 - UNSPECIFIED DISORDER OF ADULT PERSONALITY AND BEHAVIOR Status: Acute (5) Polysubstance abuse Code(s): F19.10 - OTHER PSYCHOACTIVE SUBSTANCE ABUSE, UNCOMPLICATED Status: Acute <Scott Funes - Last Filed: 01/06/18 10:58> Attending Addendum - Attending Addendum Date/Time: 01/06/18 1058 I personally evaluated the patient and discussed the management with Dr. Johnson. I agree with the History, Examination, Assessment and Plan documented above with any addition or exceptions noted below. Patient stable. Awaiting CK results. [facility] consulted. Continue fluids for downtrending CK. <Scott Funes - Last Filed: 01/06/18 10:58>
[2018-01-06] MEDS: cloNIDine 0.1 MG TAB PO SCH (09:46)
[2018-01-06] MEDS: Nicotine 7 MG PATCH TD SCH (09:46)
[2018-01-06] MEDS: Ondansetron ODT 4 MG TAB PO PRN ×2 (13:14→19:34)
[2018-01-06 14:57] LABS: Anion Gap 12 mmol/L (10-20); BUN (Urea Nitrogen) 11 mg/dL (7.0-18.7); CK (CPK) 490 U/L (29-168); Calc. Creatinine Clearance 106 mL/min (70-130); Carbon Dioxide 27 mmol/L (22-29); Chloride 103 mmol/L (98-107); Estimated GFR-MDRD 78; Glucose 107 mg/dL (70-105); Potassium 4.2 mmol/L (3.5-5.1); Sodium 138 mmol/L (136-145)
[2018-01-06] MEDS: traZODone HCl 150 MG TAB PO SCH (20:24)
[2018-01-07] MEDS: Lactated Ringer's 1,000 ML IV SCH ×2 (02:35→06:13)
[2018-01-07 05:25] LABS: Anion Gap 13 mmol/L (10-20); BUN (Urea Nitrogen) 13 mg/dL (7.0-18.7); CK (CPK) 279 U/L (29-168); Calc. Creatinine Clearance 122 mL/min (70-130); Calcium 8.6 mg/dL (7.8-10.44); Carbon Dioxide 27 mmol/L (22-29); Chloride 104 mmol/L (98-107); Estimated GFR-MDRD Greater than 90; Glucose 86 mg/dL (70-105); Potassium 4.3 mmol/L (3.5-5.1); Sodium 140 mmol/L (136-145)
--- NOTE | 2018-01-07 06:01 | PDOC.FM ---
- Subjective Subjective: Ms. Lamas was sleeping comfortably in bed. No complaints. She did not desire to talk much or answer questions. - Objective MAR Reviewed: Yes Vital Signs & Weight: Vital Signs (12 hours) Temp Pulse Resp BP Pulse Ox 01/06/18 20:00 97.9 F 71 18 139/70 98 Weight Weight 70.9 kg I&O: 01/05/18 01/06/18 01/07/18 06:59 06:59 06:59 Intake Total 625 7005 6875 Balance 625 7005 6875 Result Diagrams: 01/03/18 19:43 01/07/18 04:20 <Fifi Lo - Last Filed: 01/07/18 07:21> - Objective Vital Signs & Weight: Vital Signs (12 hours) Temp Pulse Resp BP BP Pulse Ox 01/07/18 08:14 156/80 H 01/07/18 07:59 96.9 F L 81 16 183/83 H 94 L Weight Weight 70.9 kg I&O: 01/06/18 01/07/18 01/08/18 06:59 06:59 06:59 Intake Total 7005 53963 1000 Balance 7005 82115 1000 Result Diagrams: 01/03/18 19:43 01/07/18 04:20 <Scott Funes - Last Filed: 01/07/18 09:57> Phys Exam - Physical Examination Constitutional: NAD Respiratory: no wheezing, no rhonchi, clear to auscultation bilateral Cardiovascular: RRR, no significant murmur Gastrointestinal: soft, non-tender, positive bowel sounds Musculoskeletal: edema present (trace) Neurological: non-focal, moves all 4 limbs Psychiatric: normal affect Skin: normal turgor <Fifi Lo - Last Filed: 01/07/18 07:21> Dx/Plan (1) Rhabdomyolysis Code(s): M62.82 - RHABDOMYOLYSIS Status: Acute (2) Suicidal ideation Code(s): R45.851 - SUICIDAL IDEATIONS Status: Acute (3) Hypokalemia Code(s): E87.6 - HYPOKALEMIA Status: Resolved (4) Mental and behavioral problem Code(s): F48.9 - NONPSYCHOTIC MENTAL DISORDER, UNSPECIFIED; F69 - UNSPECIFIED DISORDER OF ADULT PERSONALITY AND BEHAVIOR Status: Acute (5) Polysubstance abuse Code(s): F19.10 - OTHER PSYCHOACTIVE SUBSTANCE ABUSE, UNCOMPLICATED Status: Acute - Plan Plan: 32 yo F presented for SI and now being treated for rhabdo. Rhabdomyolisis - CK 279 this am, below 300 threshold for inpatient psych approval - discontinue IVF SI - not currently suicidal. Continue sitter. Plan to consult [facility] for evaluation today - continue erica whipple scheduled. ativan prn Hypokalemia, resolved Polysubstance abuse - initial UDS positive for methamphetamines, cocaine, benzos Dispo: stable, CK improved, pending [facility] eval for transfer to inpatient psych facility <Fifi Lo - Last Filed: 01/07/18 07:21> (1) Suicidal ideation Code(s): R45.851 - SUICIDAL IDEATIONS Status: Acute (2) Hypokalemia Code(s): E87.6 - HYPOKALEMIA Status: Resolved (3) Rhabdomyolysis Code(s): M62.82 - RHABDOMYOLYSIS Status: Acute (4) Mental and behavioral problem Code(s): F48.9 - NONPSYCHOTIC MENTAL DISORDER, UNSPECIFIED; F69 - UNSPECIFIED DISORDER OF ADULT PERSONALITY AND BEHAVIOR Status: Acute (5) Polysubstance abuse Code(s): F19.10 - OTHER PSYCHOACTIVE SUBSTANCE ABUSE, UNCOMPLICATED Status: Acute <Scott Funes - Last Filed: 01/07/18 09:57> Attending Addendum - Attending Addendum Date/Time: 01/07/18 0955 I personally evaluated the patient and discussed the management with Dr. Lo. I agree with the History, Examination, Assessment and Plan documented above with any addition or exceptions noted below. Patient stable and medically clear for D/C. CK <300. Consult [facility] as patient has met their arbitrary criteria for medical clearance. <Scott Funes - Last Filed: 01/07/18 09:57>
[2018-01-07] MEDS: cloNIDine 0.1 MG TAB PO SCH (08:14)
[2018-01-07] MEDS: Nicotine 7 MG PATCH TD SCH (09:54)
[2018-01-07 11:40] VITALS: BP 156/76; TEMP 97.7
[2018-01-07] MEDS: Lorazepam 2 MG/ML VIAL SLOW IVP PRN (14:07)
== END 2018-01-07 16:00 | disposition short-term general hospital (02) ==
LOC: ERS 17:40 → T4-A 01-05 00:23
PROVIDERS: ADMIT Student in an Organized Health Care Education/Training Program; ATTEND Student in an Organized Health Care Education/Training Program
DX: M62.82 Rhabdomyolysis (principal); R45.851 Suicidal ideations; E87.6 Hypokalemia; F69 Unspecified disorder of adult personality and behavior; F48.9 Nonpsychotic mental disorder, unspecified; F15.10 Other stimulant abuse, uncomplicated; F14.10 Cocaine abuse, uncomplicated; F13.10 Sedative, hypnotic or anxiolytic abuse, uncomplicated; Z79.899 Other long term (current) drug therapy; Z91.041 Radiographic dye allergy status
CPT/HCPCS: 36415; 51701; 80048; 80053; 80306; 80307; 81025; 82550; 85025; 96361; 96372; 96374; 96376; G0378; J1630; J2060; Q0162

== ENCOUNTER 2018-01-12 18:11 | Emergency (ER) | payer OTHER ==
[2018-01-12 19:22] LABS: #Lymphocytes 2.6 thou/uL (1.20-3.40); #Monocytes 1.2 thou/uL (0.11-0.59); #Neutrophils 8.6 thou/uL (1.40-6.50); %Basophils 0.2 % (0.0-1.0); %Eosinophils 0.4 % (0.0-10.0); %Lymphocytes 20.7 % (21.0-51.0); %Monocytes 9.6 % (0.0-10.0); %Neutrophils 69.2 % (42.0-75.0); Hemoglobin 11.8 g/dL (12.0-16.0); Mean Corpuscular HGB CONC 33.1 g/dL (32.0-36.0); Mean Corpuscular Hemoglobin 29.9 pg (27.0-31.0); Mean Corpuscular Volume 90.3 fL (78.0-98.0); Platelet Count 239 thou/uL (130-400); RBC Distribution Width 14.3 % (11.5-14.5); Red Blood Cell (RBC) Count 3.97 mill/uL (4.20-5.40); White Blood Cell (WBC) Count 12.4 thou/uL (4.8-10.8)
[2018-01-12 19:33] LABS: Bilirubin Negative (Negative); Blood, Urine Small (Negative); Glucose, Urine (Dipstick) Negative (Negative); Leukocyte Moderate (Negative); Nitrite Negative (Negative); Pregnancy Test - Urine (BHCG) Negative (Negative); Protein, Urine (Dipstick) Negative (Neg-Trace); Urobilinogen 0.2 mg/dL (0.2-1.0); pH, Urine 7.5 (5.0-9.0)
[2018-01-12 19:34] LABS: Pregu Control Background? CLEAR/WHITE (CLR/WHITE); Pregu Control Bar Appear? YES (CONTROL BAR); Specific Gravity 1.008 (1.002-1.036)
[2018-01-12 19:38] LABS: Amphetamine Detected (NotDetected); Barbiturates Screen Not Detected (NotDetected); Benzodiazepine Screen Not Detected (NotDetected); Cocaine Metabolite Screen Not Detected (NotDetected); Medtox Control Line Valid? VALID (VALID); Medtox Reader # READER 4; Methadone Not Detected (NotDetected); Methamphetamine Detected (NotDetected); Opiate Screen Not Detected (NotDetected); Oxycodone Screen Not Detected (NotDetected); Phencyclidine (PCP) Not Detected (NotDetected); THC/Cannabinoid Screen Not Detected (NotDetected); Tricyclic Screen Not Detected (NotDetected)
[2018-01-12 19:39] LABS: Clarity Clear (Clear); Specific Gravity, Urine 1.008 (1.002-1.036)
[2018-01-12 19:46] LABS: ALT (SGPT) 24 U/L (8-55); AST (SGOT) 30 U/L (5-34); Acetaminophen Less than 6.0 mcg/mL (10.0-30.0); Albumin 4.1 g/dL (3.5-5.0); Alcohol Less than 10 mg/dL (Less than 10); Alkaline Phosphatase 60 U/L (40-150); Anion Gap 14 mmol/L (10-20); BUN (Urea Nitrogen) 13 mg/dL (7.0-18.7); Bilirubin, Total 0.5 mg/dL (0.2-1.2); CK (CPK) 582 U/L (29-168); Calc. Creatinine Clearance 0 mL/min (70-130); Calcium 9.3 mg/dL (7.8-10.44); Carbon Dioxide 25 mmol/L (22-29); Chloride 104 mmol/L (98-107); Estimated GFR-MDRD 81; Globulin 3.1 g/dL (2.4-3.5); Glucose 83 mg/dL (70-105); Potassium 3.7 mmol/L (3.5-5.1); Protein, Total 7.2 g/dL (6.0-8.3); Salicylate Less than 8.0 mg/dL (15.0-30.0); Sodium 139 mmol/L (136-145)
[2018-01-12 19:52] LABS: Bacteria/HPF 1+ HPF (None Seen); Hyaline Casts/LPF 0-3 HYALINE CAST LPF (0-3 Hyaline); Squamous Epithelial 0-3 HPF (0-3)
[2018-01-12] MEDS ORDERED: Ziprasidone 20 MG VIAL ONE (20:16)
[2018-01-12] MEDS ORDERED: Water For Inject, Bacteriostat 30 ML ONE (20:16)
[2018-01-13] MEDS ORDERED: HYDROcodone/Acetaminophen 5/325 mg Tablet ONE (02:06)
[2018-01-13] MEDS ORDERED: Metoclopramide HCl 10 MG/2 ML VIAL ONE (02:07)
[2018-01-13] MEDS ORDERED: Lorazepam 2 MG/ML VIAL ONE (03:08)
[2018-01-13] MEDS ORDERED: diphenhydrAMINE 50 MG/ML VIAL ONE (03:12)
[2018-01-13] MEDS ORDERED: Lorazepam 1 MG TAB ONE ×2 (10:57→16:20)
[2018-01-13] MEDS ORDERED: Ziprasidone 20 MG VIAL ONE (11:26)
[2018-01-13] MEDS ORDERED: Water For Inject, Bacteriostat 30 ML ONE (11:26)
== END 2018-01-14 11:45 ==
LOC: ERS 18:11
DX: F29 Unspecified psychosis not due to a substance or known physiological condition (principal); F15.10 Other stimulant abuse, uncomplicated
CPT/HCPCS: 36415; 51701; 80053; 80306; 80307; 81003; 81015; 81025; 82550; 84443; 85025; 87077; 87086; 87186; 93005; 94760; 96372; A4353; J1200; J2060; J2765; J3486

== ENCOUNTER 2018-01-23 17:31 | Emergency (ER) | payer OTHER | END 2018-01-23 18:50 | disposition left against medical advice (07) | LOC: ERS 17:31 | DX: R45.1 Restlessness and agitation (principal); I10 Essential (primary) hypertension; F32.9 Major depressive disorder, single episode, unspecified; Z79.899 Other long term (current) drug therapy | CPT/HCPCS: 99285 ==

== ENCOUNTER 2018-02-20 17:04 | Emergency (ER) | payer OTHER | END 2018-02-20 17:15 | LOC: ERS 17:04 | DX: F19.10 Other psychoactive substance abuse, uncomplicated (principal) | CPT/HCPCS: 99283 ==

== ENCOUNTER 2018-03-28 09:59 | Emergency (ER) | payer OTHER | END 2018-03-28 10:11 | disposition home or self-care (01) | LOC: ERS 09:59 | DX: F15.10 Other stimulant abuse, uncomplicated (principal) | CPT/HCPCS: 99283 ==

== ENCOUNTER 2018-07-02 03:15 | Emergency (ER) | payer OTHER ==
[2018-07-02 03:44] LABS: #Basophils 0.1 thou/uL (0.0-0.2); #Eosinphils 0.1 thou/uL (0.0-0.7); #Lymphocytes 3.7 thou/uL (1.20-3.40); #Monocytes 1.2 thou/uL (0.11-0.59); #Neutrophils 7.6 thou/uL (1.40-6.50); %Basophils 0.8 % (0.0-1.0); %Eosinophils 0.6 % (0.0-10.0); %Lymphocytes 29.3 % (21.0-51.0); %Monocytes 9.2 % (0.0-10.0); %Neutrophils 60.2 % (42.0-75.0); Hemoglobin 12.3 g/dL (12.0-16.0); Mean Corpuscular HGB CONC 32.5 g/dL (32.0-36.0); Mean Corpuscular Hemoglobin 30.2 pg (27.0-31.0); Mean Corpuscular Volume 92.8 fL (78.0-98.0); Mean Platelet Volume 7.2 fL (7.4-10.4); Platelet Count 324 thou/uL (130-400); RBC Distribution Width 14.6 % (11.5-14.5); Red Blood Cell (RBC) Count 4.07 mill/uL (4.20-5.40); White Blood Cell (WBC) Count 12.7 thou/uL (4.8-10.8)
[2018-07-02 04:02] LABS: ALT (SGPT) 18 U/L (8-55); AST (SGOT) 41 U/L (5-34); Acetaminophen Less than 6.0 mcg/mL (10.0-30.0); Albumin 4.6 g/dL (3.5-5.0); Alcohol Less than 10 mg/dL (Less than 10); Alkaline Phosphatase 73 U/L (40-150); Anion Gap 20 mmol/L (10-20); BUN (Urea Nitrogen) 19 mg/dL (7.0-18.7); Calc. Creatinine Clearance 0 mL/min (70-130); Calcium 9.8 mg/dL (7.8-10.44); Carbon Dioxide 17 mmol/L (22-29); Chloride 108 mmol/L (98-107); Estimated GFR-MDRD 42; Globulin 3.1 g/dL (2.4-3.5); Glucose 85 mg/dL (70-105); Potassium 3.2 mmol/L (3.5-5.1); Protein, Total 7.7 g/dL (6.0-8.3); Salicylate Less than 8.0 mg/dL (15.0-30.0); Sodium 142 mmol/L (136-145)
[2018-07-02] MEDS ORDERED: Midazolam HCl 2 mg/2 ml Vial ONE (04:06)
[2018-07-02] MEDS ORDERED: Ketamine 50 MG/ML (10ML VIAL) ONE (06:11)
--- NOTE | 2018-07-02 12:51 | CT ---
PRELIMINARY REPORT/[facility]/EMERGENTY AFTER-HOURS PROCEDURE CT Head Without Contrast EXAM DATE/TIME: 07/02/2018 4:22 AM CLINICAL HISTORY: 32 years old, female; Signs and symptoms; Altered mental status/memory loss; Patient HX: Er 9. AMS; F 32 presents to the ED via [facility] for psych evaluation and suspected drug abuse. ; Additional info: *scan done helical, PT combative TECHNIQUE: Imaging protocol: Axial computed tomography images of the head without contrast. COMPARISON: No relevant prior studies available. FINDINGS: Brain: Normal. No hemorrhage. Unremarkable white matter. No mass effect. Ventricles: Normal. No ventriculomegaly. Bones/joints: Unremarkable. No acute fracture. Sinuses: Visualized sinuses are unremarkable. No fluid levels. Mastoid air cells: Visualized mastoid air cells are well aerated. No mastoid effusion. Soft tissues: Unremarkable. IMPRESSION: No acute intracranial abnormality. Thank you for allowing us to participate in the care of your patient. Dictated and Authenticated by: Will Taylor MD 07/02/2018 4:32 AM Central Time ([place] & [place]) FINAL REPORT CT HEAD: Multiple axial tomograms are obtained through the head without contrast. No acute intracranial abnormality identified. I am in agreement with the preliminary report. POS: OFF
== END 2018-07-02 05:12 | disposition home or self-care (01) ==
LOC: ERS 03:15
DX: F19.129 Other psychoactive substance abuse with intoxication, unspecified (principal)
CPT/HCPCS: 70450; 80053; 80307; 83735; 85025; 96361; 96372; 96374; 96375; J2250

== ENCOUNTER 2018-10-11 12:08 | Observation (INO) | payer OTHER ==
[2018-10-11] MEDS ORDERED: Haloperidol Lactate 5 MG/ML VIAL ONE (12:11)
[2018-10-11] MEDS ORDERED: Lorazepam 2 MG/ML VIAL ONE ×2 (12:11→16:12)
[2018-10-11] MEDS ORDERED: Ketamine 50 MG/ML (10ML VIAL) ONE (12:42)
[2018-10-11 12:45] LABS: #Basophils 0.1 thou/uL (0.0-0.2); #Eosinphils 0.1 thou/uL (0.0-0.7); #Lymphocytes 2.8 thou/uL (1.20-3.40); #Monocytes 1.2 thou/uL (0.11-0.59); #Neutrophils 10.5 thou/uL (1.40-6.50); %Basophils 0.5 % (0.0-1.0); %Eosinophils 0.8 % (0.0-10.0); %Lymphocytes 19.1 % (21.0-51.0); %Monocytes 7.9 % (0.0-10.0); %Neutrophils 71.7 % (42.0-75.0); Mean Corpuscular HGB CONC 33.1 g/dL (32.0-36.0); Mean Corpuscular Hemoglobin 29.3 pg (27.0-31.0); Mean Corpuscular Volume 88.3 fL (78.0-98.0); Mean Platelet Volume 7.3 fL (7.4-10.4); Platelet Count 302 thou/uL (130-400); White Blood Cell (WBC) Count 14.6 thou/uL (4.8-10.8)
[2018-10-11] MEDS ORDERED: KETAMINE 100 MG/ML (5ML VIAL) IM SCH (12:45)
[2018-10-11 13:03] LABS: BHCG - Serum Negative (NEGATIVE); Pregs Control Background? CLEAR/WHITE (CLR/WHITE); Pregs Control Bar Appear? YES (CONTROL BAR)
[2018-10-11 13:07] LABS: ALT (SGPT) 26 U/L (8-55); AST (SGOT) 51 U/L (5-34); Acetaminophen Less than 6.0 mcg/mL (10.0-30.0); Albumin 4.3 g/dL (3.5-5.0); Alcohol Less than 10 mg/dL (Less than 10); Alkaline Phosphatase 77 U/L (40-150); Anion Gap 15 mmol/L (10-20); BUN (Urea Nitrogen) 16 mg/dL (7.0-18.7); Bilirubin, Total 0.6 mg/dL (0.2-1.2); CK (CPK) 1141 U/L (29-168); Calc. Creatinine Clearance 0 mL/min (70-130); Calcium 9.4 mg/dL (7.8-10.44); Carbon Dioxide 24 mmol/L (22-29); Chloride 101 mmol/L (98-107); Estimated GFR-MDRD 43; Glucose 78 mg/dL (70-105); Potassium 3.1 mmol/L (3.5-5.1); Protein, Total 7.3 g/dL (6.0-8.3); Salicylate Less than 8.0 mg/dL (15.0-30.0); Sodium 137 mmol/L (136-145)
[2018-10-11 13:24] LABS: Thyroid Stimulating Hormone 0.8901 uIU/mL (0.35-4.94)
[2018-10-11 15:18] LABS: Bilirubin Small (Negative); Blood, Urine Small (Negative); Glucose, Urine (Dipstick) Negative (Negative); Leukocyte Small (Negative); Nitrite Positive (Negative); Protein, Urine (Dipstick) 100 mg/dL (Neg-Trace); Urobilinogen 0.2 mg/dL (Less than 2)
[2018-10-11 15:34] LABS: Amphetamine Detected (NotDetected); Barbiturates Screen Not Detected (NotDetected); Benzodiazepine Screen Not Detected (NotDetected); Cocaine Metabolite Screen Not Detected (NotDetected); Medtox Control Line Valid? VALID (VALID); Medtox Reader # READER 1; Methadone Not Detected (NotDetected); Methamphetamine Detected (NotDetected); Opiate Screen Not Detected (NotDetected); Oxycodone Screen Not Detected (NotDetected); Phencyclidine (PCP) Not Detected (NotDetected); THC/Cannabinoid Screen Not Detected (NotDetected); Tricyclic Screen Not Detected (NotDetected)
[2018-10-11 15:43] LABS: Clarity Opaque (Clear)
[2018-10-11 15:45] LABS: Bacteria/HPF 4+ HPF (None Seen); Squamous Epithelial 0-3 HPF (0-3); Transitional Epithelial 0-3 HPF (None Seen); WBC/HPF Greater Than 50 HPF (0-3)
[2018-10-11 15:46] LABS: Calcium Oxalate Crystals 1+ HPF (None Seen)
[2018-10-11] MEDS ORDERED: diphenhydrAMINE 50 MG/ML VIAL ONE (16:12)
[2018-10-11] MEDS ORDERED: cefTRIAXone\\ROCEPHIN 2 GM VIAL ONE (16:12)
[2018-10-11] MEDS ORDERED: Ziprasidone 20 MG VIAL ONE (16:12)
[2018-10-11] MEDS ORDERED: diphenhydrAMINE 50 MG/ML VIAL IVP SCH (20:45)
--- NOTE | 2018-10-11 21:29 | PDOC.FPRHP ---
- History of Present Illness Chief Complaint: Aggitation History of Present Illness: 32 y/o f with pmhx of substance abuse d/o and methamphetamine use was brought to the ED after becoming agitated at [facility]. The pt was there to get a Haldol injection, but was not there at her scheduled appointment time. They could not see the pt, and she became aggressive and agitated. [facility] called [place] Police department who escorted the pt to the ED. Pt was very agitated on arrival, throwing her body all over the room per nurse. The pt was given 10 IM haldol, 125 mg IM ketamine, 20 mg IM geodon, 2 mg IV ativan, 50 mg Benadryl, X3 L NS and 2 g rocephin in the ED. When I came to evaluate the pt, she was sleeping quietly. She was arousable, but would not answer questions. She would mumble words and then fall back asleep when questioned. - Allergies/Adverse Reactions Allergies Allergy/AdvReac Type Severity Reaction Status Date / Time Iodine and Iodide Containing Allergy Severe Short of Verified 01/05/18 02:20 Produc Breath - Home Medications Medication Instructions Recorded Confirmed Type Ziprasidone HCl [Geodon] 160 mg PO HS 04/06/17 01/05/18 History cloNIDine [Catapres] 0.1 mg PO DAILY 04/06/17 01/05/18 History traZODone HCl [Trazodone HCl] 300 tab PO HS 04/06/17 01/05/18 History Divalproex Sodium [Divalproex 500 mg PO BID 01/05/18 01/05/18 History Sodium ER] - History PMHx: Suicidal ideation, substance abuse d/o PSHx: FHx: Social: unable to retrieve any history from patient. Reviewed prior history. - Review of Systems ROS unobtainable: due to mental status (unable to have patient answer questions at this time. Possibly due to her acute methamphetamine intoxication or from the drugs she received in the ED.) - Vital signs BP: 128/104 HR: 76 RR: 19 Tmax: 97.4 Pox: 99% on RA Wt: 57.9 kg - Physical Exam -Constitutional: Pt somnolent, arousable to gentle touch, but unable to follow command or answer questions as she mumbles and falls back asleep, pushing me away. Appears in NAD. Moves all 4 extremities. Opens eyes spontaneously. HEENT: normocephalic and atraumatic, conjunctiva clear, no scleral icterus -HEENT: dry MM. Vertical nystagmus bilaterally. PERRL. Neck: supple, trachea midline, no LAD Heart: RRR, normal S1/S2, no murmurs/rubs/gallops, pulses present, no edema Lungs: CTAB, no respiratory distress, good air movement, no rales/rhonchi, no wheezing, no retractions Abdomen: soft, bowel sounds present Musculoskeletal: normal structure Neurological: no focal deficit Skin: good turgor, capillary refill <2 seconds, no jaundice Heme/Lymphatic: no unusual bruising or bleeding, no purpura, no petechia -Psychiatric: deferred as pt was not-cooperative and somnolent. FMR H&P: Results - Labs Result Diagrams: 10/11/18 12:34 10/11/18 12:34 Lab results: WBC 14.6 thou/uL (4.8-10.8) H 10/11/18 12:34 Hgb 12.0 g/dL (12.0-16.0) 10/11/18 12:34 Hct 36.2 % (36.0-47.0) 10/11/18 12:34 MCV 88.3 fL (78.0-98.0) 10/11/18 12:34 Plt Count 302 thou/uL (130-400) 10/11/18 12:34 Neutrophils % 71.7 % (42.0-75.0) 10/11/18 12:34 Sodium 137 mmol/L (136-145) 10/11/18 12:34 Potassium 3.1 mmol/L (3.5-5.1) L 10/11/18 12:34 Chloride 101 mmol/L (98-107) 10/11/18 12:34 Carbon Dioxide 24 mmol/L (22-29) 10/11/18 12:34 BUN 16 mg/dL (7.0-18.7) 10/11/18 12:34 Creatinine 1.41 mg/dL (0.6-1.1) H 10/11/18 12:34 Glucose 78 mg/dL (70-105) 10/11/18 12:34 Calcium 9.4 mg/dL (7.8-10.44) 10/11/18 12:34 Total Bilirubin 0.6 mg/dL (0.2-1.2) 10/11/18 12:34 AST 51 U/L (5-34) H 10/11/18 12:34 ALT 26 U/L (8-55) 10/11/18 12:34 Alkaline Phosphatase 77 U/L (40-150) 10/11/18 12:34 Creatine Kinase 1787 U/L (29-168) H 10/11/18 18:04 Serum Total Protein 7.3 g/dL (6.0-8.3) 10/11/18 12:34 Albumin 4.3 g/dL (3.5-5.0) 10/11/18 12:34 Urine Ketones Negative mg/dL (Negative) 10/11/18 14:13 Urine Blood Small (Negative) A 10/11/18 14:13 Urine Nitrite Positive (Negative) A 10/11/18 14:13 Ur Leukocyte Esterase Small (Negative) H 10/11/18 14:13 Urine RBC 4-6 HPF (0-3) A 10/11/18 14:13 Urine WBC Greater Than 50 HPF (0-3) A 10/11/18 14:13 Ur Squamous Epith Cells 0-3 HPF (0-3) 10/11/18 14:13 Urine Bacteria 4+ HPF (None Seen) A 10/11/18 14:13 Laboratory Tests 10/11/18 10/11/18 10/11/18 12:34 14:13 18:04 Potassium 3.1 L Creatinine 1.41 H Creatine Kinase 1141 H 1787 H Ur Amphetamines Screen Detected H U Methamphetamines Scrn Detected H FMR H&P: A/P - Problem List (1) Rhabdomyolysis Current Visit: No Status: Acute Code(s): M62.82 - RHABDOMYOLYSIS (2) Metabolic encephalopathy Current Visit: No Status: Acute Code(s): G93.41 - METABOLIC ENCEPHALOPATHY (3) Acute psychosis Current Visit: No Status: Acute Code(s): F23 - BRIEF PSYCHOTIC DISORDER (4) Hypokalemia Current Visit: No Status: Acute Code(s): E87.6 - HYPOKALEMIA (5) Methamphetamine abuse Current Visit: No Status: Acute Code(s): F15.10 - OTHER STIMULANT ABUSE, UNCOMPLICATED (6) Polysubstance abuse Current Visit: No Status: Acute Code(s): F19.10 - OTHER PSYCHOACTIVE SUBSTANCE ABUSE, UNCOMPLICATED (7) UTI (urinary tract infection) Current Visit: Yes Status: Acute (8) ANNA (acute kidney injury) Current Visit: Yes Status: Acute Code(s): N17.9 - ACUTE KIDNEY FAILURE, UNSPECIFIED - Plan 32 y/o f admitted to inpatient for treatment of Rhabdomyolysis secondary to methamphetamine use also causing Metabolic encephalopathy. 1. Rhabdomyolysis - CKP elevated - Pt received X3 L NS in the ED - Ordered NS at 150ml/hr - Ordered strict I/O's 2. Metabolic Encephalopathy vs acute psychosis - Most likely secondary to methamphetamine intoxication/substance abuse - Continue to monitor patient and re-evaluate pt once her drug influence has lessened - Transfer to [facility] once pt is medically stabilized. 3. Methamphetamine abuse d/o - UDS positive for meth and amphetamines 4. Hypokalemia - K 3.1 5. Acute UTI - Ordered rocephin - Urine ccx pending 6. ANNA - Continue IVF - Cr 1.41 Disposition/LOS: Pt stable admitted to inpatient for rhabdomyolysis. At least 2 days FMR H&P: Upper Level - Pertinent history 32 yo female with known substance abuse and psychiatric disorders presents after becoming agitated at [facility]. Patient became agitated to the point of needing chemical and physical restraints. Since that time patient has been uncooperative and unwilling to interact. Please see product managent intern note above for further information. General: female appears stated age, NAD. Uncooperative with exam HEENT: Moist mucous membranes CV: RRR, no murmurs Respiratory: CTA-bilaterally, no wheezing Abdomen: Soft, nontender, no distention Normoactive BS Extremities: Moving all four symmetrically, no edema Neuro: No focal deficits, but not able to fully test Psych: Unable to complete - Plan Date/Time: 10/11/182127 ISai MD, have evaluated this patient and agree with findings/ plan as outlined by product managent intern resident. Pertinent changes/additions are listed here. 1. Rhabdomyolysis - Likely secondary to agitation and methamphetamine use - IVF - Monitor output - Recheck CK 2. Agitation/Psychosis - Once medically cleared will consult [facility] for inpatient evaluation 3. UTI - Urine culture pending - Empiric therapy initiated 4. ANNA - Likely secondary to dehydration and above - Recheck BMP in AM - IVF 5. Polysubstance abuse - UDS with amphetamine - Recommend cessation - Will need outpatient follow up PCP: Reported [facility], but no clinic chart on file. CODE STATUS: FULL CODE Disposition: Stable, will admit for further treatment and plan for [facility] discharge when medically stable.
[2018-10-11 22:22] VITALS: BMI 27.6
[2018-10-11] MEDS: Sodium Chloride 0.9% 1,000 ML IV SCH (22:35)
--- NOTE | 2018-10-12 00:38 | PDOC.EVN ---
Event Note - Event Note Event Note: Date/Time: 10/12/18 0032 I personally evaluated the patient and discussed the management with Dr. Peace on 10/11/2018 I agree with the History, Examination, Assessment and Plan documented above with any addition or exceptions noted below - 32 yo female with h/o bipolar d/o and polysubstance abuse presented with agitation. Patient apparently went to [facility] for Haldo, injection but appointment wasn;t for today. She became agitated and police were called. Patient brought to ER for medical/psych eval. Became more agitated and required sedation. Lab evaluation showed elevated CK and UDS ( +) for amphetamines and methamphetamines. PMH/PSH/Meds/SH reviewed and agree with resident's documentation. T97.7 P89 BP165/94 RR18 Exam repeated by me and agree with resident's findings. A/P: 1) Mild rhabdomyolysis - Place in obs and IVF. Monitor urine output. Recheck labs in AM. Consult [facility] once medically cleared
[2018-10-12] MEDS: Sodium Chloride 0.9% 1,000 ML IV SCH ×2 (03:57→06:13)
[2018-10-12] MEDS ORDERED: Potassium Chloride 20 MEQ TAB PO SCH (06:15)
--- NOTE | 2018-10-12 06:19 | PDOC.FM ---
- Subjective Subjective: Patient was sleeping comfortably with sitter in room when I rounded. She stated that she felt "fine" and then refused to answer any further questions. She did not appear to be in any distress. - Objective MAR Reviewed: Yes Vital Signs & Weight: Vital Signs (12 hours) Temp Pulse Resp BP BP Pulse Ox 10/12/18 00:21 97.7 F 73 20 156/84 H 73 L 10/11/18 22:10 97.7 F 89 18 165/94 H 98 Weight Weight 57.9 kg Result Diagrams: 10/11/18 12:34 10/12/18 06:08 Phys Exam - Physical Examination Constitutional: NAD HEENT: moist MMs (NC/AT) Neck: no nodes, supple, full ROM Respiratory: no wheezing, no rales, no rhonchi, clear to auscultation bilateral Cardiovascular: RRR, no significant murmur, no rub Gastrointestinal: soft, non-tender, no distention, positive bowel sounds Musculoskeletal: no edema, pulses present Neurological: non-focal, moves all 4 limbs Psychiatric: A&O x 3 (Appears alert and oriented, cannot assess. Appears well kept, abnormal behavior, unable to assess mood, depressed/reluctant affect. Unable to assess speech, thought process or content, perceptions, cognition, insight or judgement. ) Skin: normal turgor, cap refill <2 seconds Dx/Plan - Plan Plan: 32 y/o f admitted to inpatient for treatment of Rhabdomyolysis secondary to methamphetamine use also causing Metabolic encephalopathy. Rhabdomyolysis - Creatine kinase 1141 > 1787 - Pt received 3 L NS in the ED - Ordered NS at 150ml/hr - Ordered strict I/O's - Repeat CK @ 1400. Metabolic Encephalopathy vs acute psychosis - Most likely secondary to methamphetamine intoxication/substance abuse - Transfer to [facility] once pt is medically stabilized. Methamphetamine abuse - UDS positive for meth and amphetamines Hypokalemia - K 3.1 Acute UTI -Rocephin (10/11) -Cultures shows presumed E. Coli -Pending urine test and will start po antibiotics -likely Macrobid 100BID x 5 days ANNA, resolved - Continue IVF - Cr 1.41 > 0.83 Disposition/LOS: Dispo: stable, inpatient VTE: low risk Code: full
[2018-10-12 06:45] LABS: Anion Gap 12 mmol/L (10-20); BUN (Urea Nitrogen) 14 mg/dL (7.0-18.7); CK (CPK) 1039 U/L (29-168); Calc. Creatinine Clearance 89 mL/min (70-130); Calcium 8.3 mg/dL (7.8-10.44); Carbon Dioxide 22 mmol/L (22-29); Chloride 111 mmol/L (98-107); Estimated GFR-MDRD 80; Glucose 98 mg/dL (70-105); Potassium 3.3 mmol/L (3.5-5.1); Sodium 142 mmol/L (136-145)
[2018-10-12] MEDS ORDERED: Sodium Chloride 0.9% 1,000 ML IV SCH (08:15)
[2018-10-12] MEDS ORDERED: Haloperidol Lactate 5 MG/ML VIAL SLOW IVP PRN (09:19)
[2018-10-12] MEDS ORDERED: Ondansetron PF 4 MG/2 ML Vial IVP PRN (10:39)
[2018-10-12] MEDS ORDERED: Ondansetron ODT 4 MG TAB PO PRN (10:40)
--- NOTE | 2018-10-12 12:04 | PRG ---
DATE OF SERVICE: 10/12/2018 Ms. Lamas is a 32-year-old lady, who was admitted with agitation yesterday. Her urine drug screen is positive for methamphetamines. This morning, she has been sedated and is rather sleepy, but is arousable and otherwise alert. We will continue to monitor and check for QT prolongation. Job ID: [id number]
[2018-10-12 14:58] LABS: Anion Gap 9 mmol/L (10-20); BUN (Urea Nitrogen) 12 mg/dL (7.0-18.7); CK (CPK) 776 U/L (29-168); Calc. Creatinine Clearance 91 mL/min (70-130); Calcium 8.2 mg/dL (7.8-10.44); Carbon Dioxide 24 mmol/L (22-29); Chloride 108 mmol/L (98-107); Estimated GFR-MDRD 82; Glucose 93 mg/dL (70-105); Potassium 3.7 mmol/L (3.5-5.1); Sodium 137 mmol/L (136-145)
[2018-10-12] MEDS ORDERED: cefTRIAXone\\ROCEPHIN 1 GM in Sodium Chloride 0.9% 100 ML IVPB SCH (16:00)
[2018-10-12 18:24] VITALS: BP 169/103; TEMP 97.8
--- NOTE | 2018-10-13 14:54 | DIS ---
DATE OF ADMISSION: 10/11/2018 DATE OF DISCHARGE: 10/12/2018 ADMITTING ATTENDING: Hilaria Muniz MD DISCHARGE ATTENDING: Sebastián Cash MD RESIDENT: Bailey Oliva MD CONSULTS: [facility]. PROCEDURES: None. PRIMARY DIAGNOSES: Rhabdomyolysis. SECONDARY DIAGNOSES: Agitation, psychosis, urinary tract infection, acute kidney injury, and polysubstance abuse. DISCHARGE MEDICATIONS: Haldol decanoate, divalproex sodium, diphenhydramine, buspirone, benztropine. Discontinued medications: None. HISTORY OF PRESENT ILLNESS: Le is a 32-year-old female with a prior history of substance abuse, was brought to the emergency room by police after becoming agitated in the waiting at [facility]. She was there was receive her monthly Haldol injection , but was early to her scheduled appointment time. They told her they cannot see her. She became very aggressive in the waiting room and [facility] called [place] [employer], who then escorted the patient to the emergency room. On arrival, she was very agitated. In the emergency room, she was given 10 IM Haldol, 125 IM ketamine, 20 IM Geodon, 2 Ativan, 50 Benadryl, and 3 L of normal saline along with 2 g of Rocephin. As a result of these medications, she was calm and slept peacefully. She was diagnosed with urinary tract infection due to E. coli bacteria, rhabdomyolysis with elevated CK of up to 1700 and acute psychosis secondary to either missed medication or polysubstance abuse. The following day , she was back to her baseline and did not want to be admitted to an inpatient facility. [facility] came back and reevaluated the patient and said that she was safe as long as she had a discharge plan and she was discharged with close followup with [facility]. DISCHARGE INSTRUCTIONS: 1. Location: Home. 2. Diet: Regular. 3. Activity: Ad dagoberto. 4. Followup: Follow up with [facility] at regularly schedule visit. Job ID: [id number] MTDD
== END 2018-10-12 17:47 | disposition home or self-care (01) ==
LOC: ERS 12:08 → T4-B 20:04
PROVIDERS: ADMIT Family Medicine; ATTEND Family Medicine
DX: F15.10 Other stimulant abuse, uncomplicated (principal); M62.82 Rhabdomyolysis; G93.41 Metabolic encephalopathy; N39.0 Urinary tract infection, site not specified; B96.20 Unspecified Escherichia coli [E. coli] as the cause of diseases classified elsewhere; F23 Brief psychotic disorder; E87.6 Hypokalemia; N17.9 Acute kidney failure, unspecified; F31.9 Bipolar disorder, unspecified; G47.00 Insomnia, unspecified; R45.851 Suicidal ideations; Z79.899 Other long term (current) drug therapy; Z91.041 Radiographic dye allergy status
CPT/HCPCS: 36415; 51701; 80048; 80053; 80306; 80307; 81003; 81015; 82550; 84145; 84443; 84703; 85025; 87077; 87086; 87186; 93005; 93010; 96361; 96365; 96372; 96375; A4353; G0378; J0696; J1200; J1630; J2060; J2405; J3486

== ENCOUNTER 2019-12-11 00:31 | Emergency (ER) | payer OTHER ==
[2019-12-11 01:45] LABS: ALT (SGPT) 27 U/L (8-55); AST (SGOT) 62 U/L (5-34); Albumin 4.3 g/dL (3.5-5.0); Alkaline Phosphatase 92 U/L (40-110); Anion Gap 17 mmol/L (10-20); BUN (Urea Nitrogen) 6 mg/dL (7.0-18.7); Bilirubin, Total 0.7 mg/dL (0.2-1.2); CK (CPK) 1153 U/L (29-168); Calc. Creatinine Clearance 0 mL/min (70-130); Calcium 9.7 mg/dL (7.8-10.44); Carbon Dioxide 26 mmol/L (22-29); Chloride 97 mmol/L (98-107); Estimated GFR-MDRD 63; Globulin 3.2 g/dL (2.4-3.5); Glucose 107 mg/dL (70-105); Potassium 3.1 mmol/L (3.5-5.1); Protein, Total 7.5 g/dL (6.0-8.3); Sodium 137 mmol/L (136-145)
[2019-12-11 01:46] LABS: Acetaminophen Less than 6.0 mcg/mL (10.0-30.0); Alcohol Less than 10 mg/dL (Less than 10); Salicylate Less than 8.0 mg/dL (15.0-30.0)
[2019-12-11] MEDS ORDERED: Potassium Chloride 20 MEQ TAB ONE (01:59)
[2019-12-11] MEDS ORDERED: Lorazepam 2 MG/ML VIAL ONE (02:32)
== END 2019-12-11 02:51 ==
LOC: ERS 00:31
DX: F19.10 Other psychoactive substance abuse, uncomplicated (principal); R74.8 Abnormal levels of other serum enzymes; J44.9 Chronic obstructive pulmonary disease, unspecified; F31.9 Bipolar disorder, unspecified; F41.9 Anxiety disorder, unspecified; F20.9 Schizophrenia, unspecified; F17.210 Nicotine dependence, cigarettes, uncomplicated
CPT/HCPCS: 36415; 80053; 80307; 82550; 96374; J2060

== ENCOUNTER 2020-06-02 14:37 | Emergency (ER) | payer OTHER ==
[2020-06-02 18:11] LABS: #Basophils 0.1 thou/uL (0.0-0.2); #Eosinphils 0.1 thou/uL (0.0-0.7); #Lymphocytes 1.7 thou/uL (1.20-3.40); #Monocytes 0.6 thou/uL (0.11-0.59); #Neutrophils 7.3 thou/uL (1.40-6.50); %Basophils 0.6 % (0.0-1.0); %Lymphocytes 17.3 % (21.0-51.0); %Monocytes 5.8 % (0.0-10.0); %Neutrophils 75.3 % (42.0-75.0); Mean Corpuscular HGB CONC 32.4 g/dL (32.0-36.0); Mean Corpuscular Volume 92.7 fL (78.0-98.0); Mean Platelet Volume 6.8 fL (7.4-10.4); Platelet Count 330 thou/uL (130-400); RBC Distribution Width 12.8 % (11.5-14.5); Red Blood Cell (RBC) Count 4.66 mill/uL (4.20-5.40); White Blood Cell (WBC) Count 9.7 thou/uL (4.8-10.8)
[2020-06-02 18:38] LABS: ALT (SGPT) 18 U/L (8-55); AST (SGOT) 25 U/L (5-34); Albumin 3.9 g/dL (3.5-5.0); Alkaline Phosphatase 101 U/L (40-110); Anion Gap 10 mmol/L (10-20); BUN (Urea Nitrogen) 16 mg/dL (7.0-18.7); Bilirubin, Total 0.4 mg/dL (0.2-1.2); Calc. Creatinine Clearance 0 mL/min (70-130); Calcium 9.8 mg/dL (7.8-10.44); Carbon Dioxide 30 mmol/L (22-29); Chloride 97 mmol/L (98-107); Globulin 3.1 g/dL (2.4-3.5); Glucose 105 mg/dL (70-105); Potassium 3.8 mmol/L (3.5-5.1); Sodium 133 mmol/L (136-145)
[2020-06-02 18:57] LABS: Thyroid Stimulating Hormone 0.5937 uIU/mL (0.35-4.94)
[2020-06-02 19:21] LABS: BHCG - Serum Negative (NEGATIVE); Pregs Control Background? CLEAR/WHITE (CLR/WHITE); Pregs Control Bar Appear? YES (CONTROL BAR)
[2020-06-02] MEDS ORDERED: Lorazepam 1 MG TAB ONE (19:22)
== END 2020-06-02 19:20 | disposition home or self-care (01) ==
LOC: ERS 14:37
DX: F41.9 Anxiety disorder, unspecified (principal); J44.9 Chronic obstructive pulmonary disease, unspecified; F17.210 Nicotine dependence, cigarettes, uncomplicated
CPT/HCPCS: 36415; 70450; 80053; 84443; 84703; 85025; 93005

== ENCOUNTER 2020-06-20 09:51 | Emergency (ER) | payer OTHER ==
[2020-06-20] MEDS ORDERED: Lorazepam 1 MG TAB ONE (10:38)
[2020-06-20 11:07] LABS: Pregnancy Test - Urine (BHCG) Negative (Negative); Pregu Control Background? CLEAR/WHITE (CLR/WHITE); Pregu Control Bar Appear? YES (CONTROL BAR); Specific Gravity 1.004 (1.002-1.036)
[2020-06-20 11:10] LABS: #Basophils 0.1 thou/uL (0.0-0.2); #Eosinphils 0.2 thou/uL (0.0-0.7); #Lymphocytes 1.5 thou/uL (1.20-3.40); #Monocytes 0.5 thou/uL (0.11-0.59); #Neutrophils 5.6 thou/uL (1.40-6.50); %Basophils 0.8 % (0.0-1.0); %Eosinophils 2.5 % (0.0-10.0); %Lymphocytes 19.1 % (21.0-51.0); %Monocytes 6.7 % (0.0-10.0); Hemoglobin 14.5 g/dL (12.0-16.0); Mean Corpuscular HGB CONC 31.6 g/dL (32.0-36.0); Mean Corpuscular Hemoglobin 29.6 pg (27.0-31.0); Mean Corpuscular Volume 93.7 fL (78.0-98.0); Platelet Count 290 thou/uL (130-400); RBC Distribution Width 12.8 % (11.5-14.5); Red Blood Cell (RBC) Count 4.89 mill/uL (4.20-5.40); White Blood Cell (WBC) Count 7.9 thou/uL (4.8-10.8)
[2020-06-20 11:20] LABS: Acetaminophen Less than 6.0 mcg/mL (10.0-30.0); Alcohol Less than 10 mg/dL (Less than 10); CK (CPK) 88 U/L (29-168); Salicylate Less than 8.0 mg/dL (15.0-30.0)
[2020-06-20 11:21] LABS: Amphetamine Detected (NotDetected); Barbiturates Screen Not Detected (NotDetected); Benzodiazepine Screen Not Detected (NotDetected); Cocaine Metabolite Screen Not Detected (NotDetected); Medtox Control Line Valid? VALID (VALID); Medtox Reader # READER 1; Methadone Not Detected (NotDetected); Methamphetamine Detected (NotDetected); Opiate Screen Not Detected (NotDetected); Oxycodone Screen Not Detected (NotDetected); Phencyclidine (PCP) Not Detected (NotDetected); THC/Cannabinoid Screen Not Detected (NotDetected); Tricyclic Screen Not Detected (NotDetected)
[2020-06-20 11:21] LABS: ALT (SGPT) 14 U/L (8-55); AST (SGOT) 21 U/L (5-34); Alkaline Phosphatase 104 U/L (40-110); Anion Gap 12 mmol/L (10-20); BUN (Urea Nitrogen) 5 mg/dL (7.0-18.7); Bilirubin, Total 0.4 mg/dL (0.2-1.2); Calc. Creatinine Clearance 0 mL/min (70-130); Calcium 9.4 mg/dL (7.8-10.44); Carbon Dioxide 26 mmol/L (22-29); Chloride 100 mmol/L (98-107); Globulin 3.1 g/dL (2.4-3.5); Glucose 102 mg/dL (70-105); Potassium 3.8 mmol/L (3.5-5.1); Protein, Total 7.1 g/dL (6.0-8.3); Sodium 134 mmol/L (136-145)
[2020-06-20 11:55] LABS: Bacteria/HPF 3+ HPF (None Seen); Bilirubin Negative (Negative); Blood, Urine Negative (Negative); Clarity Clear (Clear); Glucose, Urine (Dipstick) Normal (Negative); Ketone, Urine Negative (Negative); Leukocyte 250 Leu/uL (Negative); Nitrite Negative (Negative); Protein, Urine (Dipstick) Negative (Neg-Trace); RBC/HPF 0-3 HPF (0-3); Specific Gravity, Urine 1.004 (1.002-1.036); Squamous Epithelial 0-3 HPF (0-3); Urobilinogen Normal mg/dL (Less than 2); pH, Urine 6.5 (5.0-9.0)
[2020-06-20 16:44] LABS: SARS-CoV-2 NAA Rapid Test Not Detected (NotDetected)
[2020-06-20] MEDS ORDERED: cloNIDine 0.1 MG TAB ONE (17:31)
== END 2020-06-21 07:50 ==
LOC: ERS 09:51
DX: F29 Unspecified psychosis not due to a substance or known physiological condition (principal); J44.9 Chronic obstructive pulmonary disease, unspecified; F17.210 Nicotine dependence, cigarettes, uncomplicated; Z79.899 Other long term (current) drug therapy; Z20.822 Contact with and (suspected) exposure to COVID-19
CPT/HCPCS: 36415; 80053; 80306; 80307; 81003; 81015; 81025; 82550; 84443; 85025; 99285; U0002